=== PATIENT | female | born 1980 | race Caucasian/White ===

== ENCOUNTER 2017-03-21 11:01 | Emergency (ER) | payer MEDICAID ==
[~2017-03-21] VITALS: Ht 157.5 cm; Wt 78.0 kg
[~2017-03-21 11:01] MED LIST: IBUP600 PO; OXYC1SOL5 PO; PREN0.01 PO; ZOLO20CO PO
[2017-03-21 11:08] VITALS: BP 123/82; PULSE 118; RESP 16; TEMP 98.5; O2SAT 98
[2017-03-21] MEDS ORDERED: SODIUM CHLOR 0.9% 1000 ML INJ 1,000 ML IV SCH (11:48)
[2017-03-21] MEDS ORDERED: chlordiazePOXIDE 25 MG CAP PO STA (11:48)
[2017-03-21] MEDS ORDERED: ZOLO100T PO (11:50)
[2017-03-21 11:51] VITALS: RESP 18; O2SAT 95
[2017-03-21 12:00] VITALS: BP 121/79; PULSE 93; RESP 18; O2SAT 97
[2017-03-21] MEDS ORDERED: LIDOCAINE VISCOUS 2% SOLN 15 ML UDC PO ONE (12:00)
[2017-03-21] MEDS ORDERED: FAMOTIDINE 20 MG/2 ML VIAL IV PUSH ONE (12:00)
[2017-03-21] MEDS ORDERED: ONDANSETRON HCL 4 MG/2 ML VIAL IVP ONE (12:00)
[2017-03-21] MEDS ORDERED: SODIUM CHLORIDE 0.9% FLUSH 10 ML FLUSH IV FLUSH PRN (12:00)
[2017-03-21] MEDS ORDERED: ALUMINUM/MAGNESIUM/SIMETH 30 ML CUP PO ONE (12:00)
[2017-03-21 12:19] LABS: AUTOMATED NEUTROPHIL # 2.9 TH/MM3 (1.8-7.7); BASOPHIL # 0.1 TH/MM3 (0-0.2); BASOPHIL % 1.3 % (0.0-2.0); EOSINOPHIL # 0.2 TH/MM3 (0-0.4); EOSINOPHIL % 3.5 % (0.0-4.0); HEMATOCRIT 44.4 % (35.0-46.0); HEMO FLAGS DIFF FINAL; LYMPH % 42.9 % (9.0-44.0); LYMPHOCYTE # 2.6 TH/MM3 (1.0-4.8); MEAN CELL VOLUME 91.2 FL (80.0-100.0); MEAN CORPUSCULAR HEMOGLOBIN 31.2 PG (27.0-34.0); MEAN CORPUSCULAR HGB CONC 34.2 % (32.0-36.0); MONO % 5.2 % (0.0-8.0); NEUT % 47.1 % (16.0-70.0); PLATELET COUNT 235 TH/MM3 (150-450); RED BLOOD COUNT 4.86 MIL/MM3 (4.00-5.30); RED CELL DISTRIBUTION WIDTH 15.6 % (11.6-17.2); WHITE BLOOD COUNT 6.1 TH/MM3 (4.0-11.0)
[2017-03-21 12:21] LABS: BLOOD, URINE LARGE (NEG); GLUCOSE,URINE NEG (NEG); KETONE, URINE NEG (NEG); PH, URINE 5.5 (5.0-8.5)
[2017-03-21 12:30] LABS: NITRITE,URINE POS (NEG)
[2017-03-21 12:35] LABS: METHOD OF COLLECTION VOIDED; URINE COLOR STRAW (YELLW/STRAW)
[2017-03-21 12:36] LABS: POTASSIUM 3.5 MEQ/L (3.5-5.1)
[2017-03-21 12:38] LABS: BACTERIA, URINE MANY /hpf; COMMENT (UR) CULTURE INDICATED; CULTURE IF INDICATED CULTURE INDICATED; SQUAMOUS EPITHELIAL CELL URINE >8 /hpf (0-5); TRANSITIONAL EPI CELLS, URINE 0-2 /hpf
[2017-03-21 12:41] LABS: INTERNATIONAL NORMALIZED RATIO 0.9 RATIO; PROTHROMBIN TIME - PATIENT 9.6 SEC (9.8-11.6)
[2017-03-21 12:45] LABS: INDIRECT BILIRUBIN 0.2 MG/DL (0.0-0.8); TOTAL BILIRUBIN ADULT 0.3 MG/DL (0.2-1.0)
[2017-03-21 12:57] VITALS: BP 104/71; PULSE 98; RESP 16; O2SAT 100
[2017-03-21] MEDS ORDERED: IBUPROFEN 600 MG TAB PO ONE (13:00)
[2017-03-21] MEDS ORDERED: ZANT150T2 PO (13:47)
[2017-03-21] MEDS ORDERED: MACR100C2 PO (13:47)
--- NOTE | 2017-03-21 13:47 | PD ---
HPI Chief Complaint: Abdominal Pain Time Seen by Provider: 11:42 Travel History International Travel<30 days: No Contact w/Intl Traveler<30days: No Traveled to known affect area: No History of Present Illness HPI Patient is a 37 year old female who comes in complaining of upper abdominal pain. She is a chronic alcoholic and she says she wants to go to Detox. She says she called [facility] and was told she needed to go the ED first. She says she has had upper abdominal pain for the past 2 days. She says it feels like she is being squeezed around her upper abdomen. She has had nausea, but no vomiting. Her last drink was earlier today. She does feel very anxious. She denies fever or chills. She says she has not had withdrawal before. PFSH Past Medical History Depression: Yes Diminished Hearing: No Integumentary: Yes (PSORIASIS) Influenza Vaccination: No ?: Not LMP: "1 WEEK AGO" Menopausal: No : 3 Para: 2 Miscarriage: 1 Past Surgical History Other Surgery: Yes (BREAST AUGMENTATION/TUMMY TUCK) Social History Alcohol Use: Yes (18 BEERS AND BOTTLE OF RUM DAILY; 1 MIXED DRINK AND 3 BEERS ) Tobacco Use: No (2 PPD) Substance Use: Yes (MARIJUANA OCCASIONALLY) Allergies-Medications (Allergen,Severity, Reaction): Coded Allergies: No Known Allergies (Verified , 03/21/17) Reported Meds & Prescriptions Reported Meds & Active Scripts Active Reported Zoloft (Sertraline HCl) 100 Mg Tab 100 Mg PO HS Review of Systems Except as stated in HPI: all other systems reviewed are Neg General / Constitutional: No: Fever, Chills Eyes: No: Blurred Vision HENT: No: Headaches Cardiovascular: No: Chest Pain or Discomfort Respiratory: No: Shortness of Breath Gastrointestinal: Positive: Nausea, Abdominal Pain, No: Vomiting Musculoskeletal: No: Pain Skin: No Rash, No Change in Pigmentation Neurologic: No: Weakness, Dizziness Physical Exam Narrative GENERAL: Awake and alert, in no acute distress. SKIN: Focused skin assessment warm/dry. HEAD: Atraumatic. Normocephalic. EYES: Pupils equal and round. No scleral icterus. No injection or drainage. ENT: Mucous membranes pink and moist. No tongue fasciculations. NECK: Trachea midline. No JVD. CARDIOVASCULAR: Regular rate and rhythm. No murmur appreciated. RESPIRATORY: No accessory muscle use. Clear to auscultation. Breath sounds equal bilaterally. GASTROINTESTINAL: Abdomen soft, nondistended. Tender to palpation of the epigastric area. No rebound or guarding. MUSCULOSKELETAL: No obvious deformities. No clubbing. No cyanosis. No edema. NEUROLOGICAL: Awake and alert. No obvious cranial nerve deficits. Motor grossly within normal limits. Normal speech. No tremors seen. PSYCHIATRIC: Appropriate mood and affect; insight and judgment normal. Data Data Last Documented VS Vital Signs Date Time Temp Pulse Resp B/P Pulse Ox O2 Delivery O2 Flow Rate FiO2 03/21/17 12:57 98 16 104/71 100 Room Air 03/21/17 11:08 98.5 Orders Basic Metabolic Panel (Bmp) (03/21/17 11:48) Complete Blood Count With Diff (03/21/17 11:48) Lipase (03/21/17 11:48) Prothrombin Time / Inr (Pt) (03/21/17 11:48) Act Partial Throm Time (Ptt) (03/21/17 11:48) Urinalysis - C+S If Indicated (03/21/17 11:48) Ua Includes Microscopic (03/21/17 11:48) Iv Access Insert/Monitor (03/21/17 11:48) Ecg Monitoring (03/21/17 11:48) Oximetry (03/21/17 11:48) Ondansetron Inj (Zofran Inj) (03/21/17 12:00) Sodium Chlor 0.9% 1000 Ml Inj (Ns 1000 M (03/21/17 11:48) Sodium Chloride 0.9% Flush (Ns Flush) (03/21/17 12:00) Famotidine Inj (Pepcid Inj) (03/21/17 12:00) Al-Mag Hy-Si 40-40-4 Mg/Ml Liq (Mag-Al P (03/21/17 12:00) Lidocaine 2% Viscous (Xylocaine 2% Visco (03/21/17 12:00) Ed Urine Pregnancytest Poc (03/21/17 11:48) Hepatic Functional Panel (03/21/17 11:48) Chlordiazepoxide (Librium) (03/21/17 11:48) Alcohol (Ethanol) (03/21/17 12:00) Urine Culture (03/21/17 12:00) Ibuprofen (Motrin) (03/21/17 13:00) Labs Laboratory Tests Test 03/21/17 12:00 White Blood Count 6.1 TH/MM3 Red Blood Count 4.86 MIL/MM3 Hemoglobin 15.2 GM/DL Hematocrit 44.4 % Mean Corpuscular Volume 91.2 FL Mean Corpuscular Hemoglobin 31.2 PG Mean Corpuscular Hemoglobin 34.2 % Concent Red Cell Distribution Width 15.6 % Platelet Count 235 TH/MM3 Mean Platelet Volume 7.3 FL Neutrophils (%) (Auto) 47.1 % Lymphocytes (%) (Auto) 42.9 % Monocytes (%) (Auto) 5.2 % Eosinophils (%) (Auto) 3.5 % Basophils (%) (Auto) 1.3 % Neutrophils # (Auto) 2.9 TH/MM3 Lymphocytes # (Auto) 2.6 TH/MM3 Monocytes # (Auto) 0.3 TH/MM3 Eosinophils # (Auto) 0.2 TH/MM3 Basophils # (Auto) 0.1 TH/MM3 CBC Comment DIFF FINAL Differential Comment Prothrombin Time 9.6 SEC Prothromb Time International 0.9 RATIO Ratio Activated Partial 28.0 SEC Thromboplast Time Urine Collection Type VOIDED Urine Color STRAW Urine Turbidity CLOUDY Urine pH 5.5 Urine Specific Gray 1.005 Urine Protein NEG mg/dL Urine Glucose (UA) NEG mg/dL Urine Ketones NEG mg/dL Urine Occult Blood LARGE Urine Nitrite POS Urine Bilirubin NEG Urine Leukocyte Esterase LARGE Urine WBC 50-99 /hpf Urine WBC Clumps FEW Urine Squamous Epithelial >8 /hpf Cells Urine Transitional Epithelial 0-2 /hpf Cells Urine Bacteria MANY /hpf Microscopic Urinalysis Comment CULTURE INDICATED Sodium Level 140 MEQ/L Potassium Level 3.5 MEQ/L Chloride Level 102 MEQ/L Carbon Dioxide Level 29.0 MEQ/L Anion Gap 9 MEQ/L Blood Urea Nitrogen 3 MG/DL Creatinine 0.67 MG/DL Estimat Glomerular Filtration 100 ML/MIN Rate Random Glucose 109 MG/DL Calcium Level 9.0 MG/DL Total Bilirubin 0.3 MG/DL Direct Bilirubin 0.1 MG/DL Indirect Bilirubin 0.2 MG/DL Aspartate Amino Transf 245 U/L (AST/SGOT) Alanine Aminotransferase 190 U/L (ALT/SGPT) Alkaline Phosphatase 139 U/L Total Protein 8.0 GM/DL Albumin 4.1 GM/DL Lipase 274 U/L Ethyl Alcohol Level 248 MG/DL [facility] Medical Decision Making Medical Screen Exam Complete: Yes Emergency Medical Condition: Yes Medical Record Reviewed: Yes Differential Diagnosis Alcohol withdrawal versus gastritis versus GERD versus pancreatitis Narrative Course Patient is a 37-year-old female comes in complaining of upper abdominal pain. Exam shows tenderness to the epigastric area. IV established, labs sent. Labs show elevated AST and ALTs, consistent with alcoholic liver disease. Alcohol level is 248. Urine is dirty, suggestive of possible UTI. Patient given GI cocktail and Librium. Currently she has no signs of withdrawal and her alcohol level is quite high. She'll be discharged with a prescription for Macrobid. She is advised to go to the rehabilitation facility and continue with her plan for detox. She is advised of results. Advised to return to the emergency department as needed for any worsening symptoms. Diagnosis Primary Impression: Gastritis Qualified Code: K29.20 - Acute alcoholic gastritis without hemorrhage Additional Impression: UTI (urinary tract infection) Qualified Code: N30.00 - Acute cystitis without hematuria Patient Instructions: Gastritis (ED), General Instructions, Urinary Tract Infection in Women (ED) Additional Instructions: Take all of the antibiotic for your UTI. Avoid alcohol use. Go to [facility] for detox. Return to the ED as needed for any worsening symptoms. You can take Maalox for the abdominal pain, and Zantac. Scripts Nitrofurantoin Monohydrate Macrocrystals (Macrobid)100 Mg Hapawdn104 Mg PO BID 5 Days Ref 0 Prov:Neela Ziegler MD 03/21/17 Ranitidine (Zantac)150 Mg Qtw619 Mg PO BID #60 TAB Ref 0 Prov:Neela Ziegler MD 03/21/17 Disposition: 01 DISCHARGE HOME Condition: Stable Neela Ziegler MD Mar 21, 2017 13:47
[2017-03-21 14:00] VITALS: BP 117/84; PULSE 88; RESP 16; O2SAT 97
== END 2017-03-21 14:22 | disposition home or self-care (01) ==
LOC: PHED 11:01
DX: K29.20 Alcoholic gastritis without bleeding (principal); N30.00 Acute cystitis without hematuria; R82.99 Other abnormal findings in urine; K70.9 Alcoholic liver disease, unspecified; Y90.8 Blood alcohol level of 240 mg/100 ml or more
CPT/HCPCS: 80048; 80076; 80307; 81001; 83690; 84703; 85025; 85610; 85730; 87077; 87086; 87186; 96361; 96374; 96375; 99284; J2405; J7030

== ENCOUNTER 2018-02-09 19:29 | Inpatient (IN) | payer MEDICAID ==
[~2018-02-09] VITALS: Ht 162.6 cm; Wt 72.4 kg
[~2018-02-09 19:29] MED LIST changes: -IBUP600 PO; +MACR100C2 PO; -OXYC1SOL5 PO; -PREN0.01 PO; +ZANT150T2 PO; +ZOLO100T PO; -ZOLO20CO PO
[2018-02-09 19:43] VITALS: BP 115/59; PULSE 121; RESP 20; TEMP 97.8; O2SAT 97
--- NOTE | 2018-02-09 20:07 | PD ---
HPI Chief Complaint: GI Complaint Time Seen by Provider: 19:59 Travel History International Travel<30 days: No Contact w/Intl Traveler<30days: No Traveled to known affect area: No History of Present Illness HPI The patient was seen and examined in the presence of the nurse. This patient complains of nausea and vomiting. Duration 3 days. Severity is moderate to severe. She also has some vague generalized abdominal discomfort. She drinks 6 alcoholic drinks per day. Rare use of cocaine. No history of IV drug abuse. No alleviating factors. Symptoms possibly exacerbated by her substance abuse. PFSH Past Medical History Anxiety: Yes Depression: Yes Diminished Hearing: No Headaches: Yes Psychiatric: Yes (PTSD) Integumentary: Yes (PSORIASIS) Influenza Vaccination: No ?: Unknown LMP: NOW Menopausal: No : 4 Para: 3 Miscarriage: 1 Past Surgical History Other Surgery: Yes (BREAST AUGMENTATION/TUMMY TUCK) Social History Alcohol Use: Yes (STATED 02/09/18 "I DRINK 3 OR 4 MIXED DRINKS PER NIGHT") Tobacco Use: Yes (1 PPD) Substance Use: Yes (STATED 02/09/18 "VERY RARELY COCAINE") Allergies-Medications (Allergen,Severity, Reaction): Coded Allergies: No Known Allergies (Verified Adverse Reaction, Unknown, 02/09/18) Reported Meds & Prescriptions Reported Meds & Active Scripts Active Macrobid (Nitrofurantoin Monohydrate Macrocrystals) 100 Mg Capsule 100 Mg PO BID 5 Days Zantac (Ranitidine HCl) 150 Mg Tab 150 Mg PO BID Reported Zoloft (Sertraline HCl) 100 Mg Tab 100 Mg PO HS Review of Systems General / Constitutional: No: Fever Eyes: No: Visual changes HENT: No: Headaches Cardiovascular: No: Chest Pain or Discomfort Respiratory: No: Shortness of Breath Gastrointestinal: Positive: Nausea, Vomiting, Abdominal Pain Genitourinary: No: Dysuria Musculoskeletal: No: Pain Skin: No Rash Neurologic: No: Weakness Psychiatric: Positive: Substance Abuse, No: Depression Endocrine: No: Polydipsia Hematologic/Lymphatic: No: Easy Bruising Physical Exam Narrative GENERAL: Well-nourished, well-developed patient vomiting and abdominal pain reduced. Has ketone breath SKIN: Focused skin assessment reveals no rash and nodules. Skin is Warm and dry. Covered in tattoos HEAD: Atraumatic. Normocephalic. EYES: Pupils equal and round. No scleral icterus. No injection or drainage. ENT: No nasal bleeding or discharge. Mucous membranes pink and moist. NECK: Trachea midline. No JVD. CARDIOVASCULAR: Regular rate and rhythm. No murmur appreciated. RESPIRATORY: No accessory muscle use. Clear to auscultation. Breath sounds equal bilaterally. GASTROINTESTINAL: Abdomen soft, non-tender, nondistended. Hepatic and splenic margins not palpable. MUSCULOSKELETAL: No obvious deformities. No clubbing. No cyanosis. No edema. NEUROLOGICAL: Awake and alert. No obvious cranial nerve deficits. Motor grossly within normal limits. Normal speech. PSYCHIATRIC: Appropriate mood and affect; insight and judgment poor. Data Data Last Documented VS Vital Signs Date Time Temp Pulse Resp B/P (MAP) Pulse Ox O2 Delivery O2 Flow Rate FiO2 02/09/18:18 113 98 Room Air 02/09/18 19:43 97.8 20 115/59 (77) Orders Orders Complete Blood Count With Diff (02/09/18 20:02) Comprehensive Metabolic Panel (02/09/18 20:02) Beta Hcg (Quant/Titer) (02/09/18 20:02) Lipase (02/09/18 20:02) Iv Access Insert/Monitor (02/09/18 20:02) Ecg Monitoring (02/09/18 20:02) Oximetry (02/09/18 20:02) NPO (02/09/18 20:02) Ondansetron Inj (Zofran Inj) (02/09/18 20:15) Sodium Chloride 0.9% Flush (Ns Flush) (02/09/18 20:15) Sodium Chlor 0.9% 1000 Ml Inj (Ns 1000 M (02/09/18 20:15) Promethazine Inj (Phenergan Inj) (02/09/18 20:15) Blood Gas Venous (Vbg) (02/09/18 20:02) Alcohol (Ethanol) (02/09/18 20:02) Lorazepam Inj (Ativan Inj) (02/09/18 20:15) Sodium Chlor 0.9% 1000 Ml Inj (Ns 1000 M (02/09/18 20:30) Sodium Bicarbonate 8.4% Inj (Sodium Bica (02/09/18 20:30) Sodium Chlor 0.9% 1000 Ml Inj (Ns 1000 M (02/09/18 21:15) Sodium Chlor 0.9% 1000 Ml Inj (Ns 1000 M (02/09/18 21:15) Ob/Psych Drug Screen, Urine (02/09/18 21:04) Magnesium (Mg) (02/09/18 21:04) Phosphorus (Po4) (02/09/18 21:04) Osmolality,Serum (02/09/18 21:04) Potassium Chlor 20 Meq Premix (Kcl 20 Me (02/09/18 21:15) Admit Order (Ed Use Only) (02/09/18 21:06) Ct Abd/Pel W Iv Contrast(Rout) (02/09/18 ) Labs Laboratory Tests Test 02/09/18 20:05 White Blood Count 8.7 TH/MM3 Red Blood Count 4.81 MIL/MM3 Hemoglobin 16.7 GM/DL Hematocrit 49.5 % Mean Corpuscular Volume 102.8 FL Mean Corpuscular Hemoglobin 34.7 PG Mean Corpuscular Hemoglobin Concent 33.7 % Red Cell Distribution Width 12.6 % Platelet Count 131 TH/MM3 Mean Platelet Volume 7.6 FL Neutrophils (%) (Auto) 83.3 % Lymphocytes (%) (Auto) 7.8 % Monocytes (%) (Auto) 8.3 % Eosinophils (%) (Auto) 0.0 % Basophils (%) (Auto) 0.6 % Neutrophils # (Auto) 7.2 TH/MM3 Lymphocytes # (Auto) 0.7 TH/MM3 Monocytes # (Auto) 0.7 TH/MM3 Eosinophils # (Auto) 0.0 TH/MM3 Basophils # (Auto) 0.1 TH/MM3 CBC Comment DIFF FINAL Differential Comment Blood Gas Puncture Site IV Blood Gas Patient Temperature 98.6 Venous Blood pH 7.18 Venous Blood Partial Pressure CO2 16 mmHg Venous Blood Partial Pressure O2 102 mmHg Venous Blood HCO3 6 mmol/L Venous Blood Oxygen Saturation 90 % Venous Blood Oxygen Content 21.3 Vol % Venous Blood Base Excess -21.5 mmol/L Oxygen Delivery Device ROOM AIR Blood Gas Inspired Oxygen 21 % Blood Urea Nitrogen 10 MG/DL Creatinine 0.72 MG/DL Random Glucose 71 MG/DL Total Protein 8.7 GM/DL Albumin 4.7 GM/DL Calcium Level 8.2 MG/DL Alkaline Phosphatase 135 U/L Aspartate Amino Transf (AST/SGOT) 298 U/L Alanine Aminotransferase (ALT/SGPT) 230 U/L Total Bilirubin 1.1 MG/DL Sodium Level 131 MEQ/L Potassium Level 3.7 MEQ/L Chloride Level 97 MEQ/L Carbon Dioxide Level 5.8 MEQ/L Anion Gap 28 MEQ/L Estimat Glomerular Filtration Rate 92 ML/MIN Lipase 3583 U/L Human Chorionic Gonadotropin, Quant LESS THAN 1 MIU/ML Ethyl Alcohol Level 287 MG/DL MDM Medical Decision Making Medical Screen Exam Complete: Yes Emergency Medical Condition: Yes Medical Record Reviewed: Yes Differential Diagnosis Gastroenteritis, alcohol withdrawal, alcoholic ketosis Narrative Course I have reviewed the patient's electronic medical record. IV placed and labs sent I gave her IV Zofran and IV Ativan and 1 L normal saline IV bolus Alcohol is 282 VBG Shows critical findings with a pH of 7.18 and a bicarbonate of 5.7 I gave her a second liter normal saline IV bolus Labs reveal elevated LFTs and elevated lipase consistent with pancreatitis I gave her liters 3 and 4 as a bolus for a total of 4 L at this point I have ordered CT of abdomen and pelvis to rule out pseudocyst or cholecystitis Patient is critically ill. She has alcoholic ketosis. Accu-Chek 72. She is not diabetic in DKA I reviewed with the electric power machine operator who will admit and recommends transfer to the main hospital Multiple rechecks were instituted. A lot of bedside time was logged Critical Care Narrative Aggregate critical care time was 80 minutes. Time to perform other separately billable procedures was not included in the critical care time. My time did not include minutes spent treating any other patients simultaneously or on activities that did not directly contribute to the patient's treatment. The services I provided to this patient were to treat and/or prevent clinically significant deterioration that could result in: Cardiac arrhythmia, cardiopulmonary arrest, hypovolemic shock I provided critical care services requiring my management, as noted below: Chart data review, documentation time, medication orders and management, vital sign assessments/reviewing monitor data, ordering and reviewing lab tests, ordering and interpreting/reviewing x-rays and diagnostic studies, care of the patient and discussion of the patient with the admitting physicians. Diagnosis Primary Impression: Alcoholic ketosis Additional Impressions: Acidemia Dehydration, severe Pancreatitis, alcoholic, acute Qualified Codes: K85.20 - Alcohol induced acute pancreatitis without necrosis or infection Alcohol intoxication Qualified Codes: F10.929 - Alcohol use, unspecified with intoxication, unspecified Admitting Information Admitting Physician Requests: Admit Diogo García MD February 09, 2018 20:07
[2018-02-09] MEDS ORDERED: SODIUM CHLORIDE 0.9% FLUSH 10 ML FLUSH IVF PRN (20:15)
[2018-02-09] MEDS ORDERED: ONDANSETRON HCL 4 MG/2 ML VIAL IV PUSH ONE (20:15)
[2018-02-09] MEDS ORDERED: PROMETHAZINE INJ 25 MG/ML VIAL IM ONE (20:15)
[2018-02-09] MEDS ORDERED: LORazepam 2 MG/ML VIAL IV PUSH ONE (20:15)
[2018-02-09] MEDS ORDERED: SODIUM CHLOR 0.9% 1000 ML INJ 1,000 ML IV ONE ×4 (20:15→21:15)
[2018-02-09 20:18] VITALS: PULSE 113; O2SAT 98
[2018-02-09 20:20] LABS: AUTOMATED NEUTROPHIL # 7.2 TH/MM3 (1.8-7.7); BASOPHIL # 0.1 TH/MM3 (0-0.2); BASOPHIL % 0.6 % (0.0-2.0); HEMATOCRIT 49.5 % (35.0-46.0); HEMOGLOBIN 16.7 GM/DL (11.6-15.3); LYMPH % 7.8 % (9.0-44.0); LYMPHOCYTE # 0.7 TH/MM3 (1.0-4.8); MEAN CELL VOLUME 102.8 FL (80.0-100.0); MEAN CORPUSCULAR HEMOGLOBIN 34.7 PG (27.0-34.0); MEAN CORPUSCULAR HGB CONC 33.7 % (32.0-36.0); MEAN PLATELET VOLUME 7.6 FL (7.0-11.0); MONO % 8.3 % (0.0-8.0); MONOCYTE # 0.7 TH/MM3 (0-0.9); NEUT % 83.3 % (16.0-70.0); PLATELET COUNT 131 TH/MM3 (150-450); RED BLOOD COUNT 4.81 MIL/MM3 (4.00-5.30); RED CELL DISTRIBUTION WIDTH 12.6 % (11.6-17.2); WHITE BLOOD COUNT 8.7 TH/MM3 (4.0-11.0)
[2018-02-09 20:27] LABS: CHLORIDE 97 MEQ/L (98-107); SODIUM (NA) 131 MEQ/L (136-145)
[2018-02-09] MEDS ORDERED: SODIUM BICARBONATE 8.4% INJ 50 MEQ/50 ML SYR IV PUSH ONE (20:30)
[2018-02-09 20:31] LABS: ALBUMIN 4.7 GM/DL (3.4-5.0); BICARBONATE 5.8 MEQ/L (21.0-32.0); CALCIUM 8.2 MG/DL (8.5-10.1); GLUCOSE,RANDOM 71 MG/DL (74-106)
[2018-02-09 20:32] LABS: BLOOD UREA NITROGEN 10 MG/DL (7-18)
[2018-02-09 20:34] LABS: ALT (GPT) 230 U/L (10-53); AST (GOT) 298 U/L (15-37); CREATININE 0.72 MG/DL (0.50-1.00); GLOMERULAR FILTRATION RATE 92 ML/MIN (>89)
[2018-02-09 20:36] LABS: TOTAL BILIRUBIN ADULT 1.1 MG/DL (0.2-1.0); TOTAL PROTEIN 8.7 GM/DL (6.4-8.2)
[2018-02-09 20:37] LABS: ALKALINE PHOSPHATASE 135 U/L (45-117)
[2018-02-09] MEDS ORDERED: LORazepam 2 MG/ML VIAL IV PUSH PRN ×3 (21:15)
[2018-02-09] MEDS ORDERED: POTASSIUM CHLOR 20 MEQ PREMIX 100 ML IV SCH (21:15)
[2018-02-09] MEDS ORDERED: SODIUM CHLORIDE 0.9% FLUSH 10 ML FLUSH IV FLUSH PRN ×2 (21:15)
[2018-02-09] MEDS ORDERED: MAGNESIUM HYDROXIDE SUSP 30 ML CUP PO PRN (21:15)
[2018-02-09] MEDS ORDERED: LACTULOSE SYRUP 20 GM/30 ML CUP PO PRN (21:15)
[2018-02-09] MEDS ORDERED: CHLORHEXIDINE GLUCONATE 2 % 1 PACK (2 CLOTHS) TOP PRN (21:15)
[2018-02-09] MEDS ORDERED: NURSING INFORMATION XX SCH (21:15)
[2018-02-09] MEDS ORDERED: SENNOSIDES 8.6 MG TAB PO PRN (21:15)
[2018-02-09] MEDS ORDERED: FLUMAZENIL 0.5 MG/5 ML VIAL IV PUSH PRN (21:15)
[2018-02-09] MEDS ORDERED: BISACODYL 10 MG SUPP RECTAL PRN (21:15)
[2018-02-09] MEDS ORDERED: RESP: ALBUTEROL 2.5 MG/3 ML NEB (PRN) INH (21:15)
[2018-02-09] MEDS ORDERED: POTASSIUM CHLORIDE 20 MEQ CONTROLLED RELEASE TAB PO ONE (21:30)
[2018-02-09] MEDS ORDERED: IOHEXOL 350 MG/ML 10 ML VIAL (for RAD DIAG) IVCONTRAST ONE (21:43)
[2018-02-09 21:47] LABS: MAGNESIUM 2.3 MG/DL (1.5-2.5)
[2018-02-09 21:49] LABS: PROTHROMBIN TIME - PATIENT 9.7 SEC (9.8-11.6)
[2018-02-09 21:50] LABS: PHOSPHORUS 3.7 MG/DL (2.5-4.9)
--- NOTE | 2018-02-09 21:53 | RADRPT ---
EXAM DATE/TIME: 02/09/2018 21:29 [facility] COMPARISON: No previous studies available for comparison. INDICATIONS : Nausea and vomiting x 3 days. Diffuse abdominal pain. Evaluate for pancreatitis. IV CONTRAST: 85 cc Omnipaque 350 (iohexol) IV ORAL CONTRAST: No oral contrast ingested. RADIATION DOSE: 8.83 CTDIvol (mGy) ; Patient motion MEDICAL HISTORY : Hernia, umbilical. SURGICAL HISTORY : None. ENCOUNTER: Initial ACUITY: 3 days PAIN SCALE: 2/10 LOCATION: Diffuse abdomen. TECHNIQUE: Volumetric scanning of the abdomen and pelvis was performed. Using automated exposure control and ad justment of the mA and/or kV according to patient size, radiation dose was kept as low as reasonably achievable to obtain optimal diagnostic quality images. DICOM format image data is available electro nically for review and comparison. FINDINGS: LOWER LUNGS: The visualized lower lungs are clear. LIVER: Liver is enlarged and demonstrates diffuse fatty infiltration. No focal mass is noted. There is no di lation of the biliary tree. No calcified gallstones. SPLEEN: Normal size without lesion. PANCREAS: There is some fluid surrounding the head of the pancreas. The head of the pancreas is also somewhat e nlarged. The findings raise the possibility of acute pancreatitis in the region of the head. Correlat ion with amylase and lipase values is recommended. No pancreatic ductal dilatation is noted. No focal mass is noted. KIDNEYS: Normal in size and shape. There is no mass, stone or hydronephrosis. ADRENAL GLANDS: Within normal limits. VASCULAR: There is no aortic aneurysm. BOWEL/MESENTERY: The stomach, small bowel, and colon demonstrate no acute abnormality. There is no free intraperitone al air or fluid. ABDOMINAL WALL: There is a ventral abdominal wall hernia containing only fat to the right of midline RETROPERITONEUM: There is no lymphadenopathy. BLADDER: Urinary bladder is significantly distended. No wall thickening or mass. REPRODUCTIVE: Within normal limits. INGUINAL: There is no lymphadenopathy or hernia. MUSCULOSKELETAL: Within normal limits for patient age. CONCLUSION: 1. Enlargement of the pancreatic head with peripancreatic fluid suggesting acute pancreatitis. Correl ation with amylase and lipase size is recommended. 2. Enlarged fatty liver. 3. Ventral abdominal wall hernia to the right of midline containing only fat. Nicola Morris MD on February 09, 2018 at 21:45 Board Certified Radiologist. This report was verified electronically.
[2018-02-09 21:58] LABS: BILIRUBIN, URINE NEG (NEG); BLOOD, URINE LARGE (NEG); GLUCOSE,URINE NEG (NEG); KETONE, URINE 80 OR GREATER mg/dL (NEG); NITRITE,URINE NEG (NEG); PH, URINE 5.5 (5.0-8.5); URINE COLOR YELLOW (YELLW/STRAW); URINE LEUKOCYTE ESTERASE NEG (NEG)
[2018-02-09 22:03] LABS: RBC, URINE 100-200 /hpf (0-3)
[2018-02-09 22:04] LABS: BACTERIA, URINE MOD /hpf; SQUAMOUS EPITHELIAL CELL URINE > 8 /hpf (0-5)
[2018-02-09 22:05] VITALS: BP 112/66; PULSE 110; RESP 18; O2SAT 99
[2018-02-09 22:50] VITALS: BP 124/62; PULSE 116; RESP 18; O2SAT 98
[2018-02-09] MEDS: ONDANSETRON HCL 4 MG/2 ML VIAL IV PUSH PRN (22:54)
[2018-02-09] MEDS: LORazepam 2 MG/ML VIAL IV PUSH PRN (22:56)
[2018-02-09] MEDS: THIAMINE INJ 100 MG in SODIUM CHLORIDE 0.9% INJ 100 ML IV SCH (22:59)
[2018-02-09 23:10] VITALS: BP 111/60; PULSE 112; RESP 16; O2SAT 98
[2018-02-10] VITALS (16 sets, daily range): BP systolic 102–144; BP diastolic 69–85; PULSE 92–124; RESP 22–44; TEMP 98.4–98.9; O2SAT 84–98
[2018-02-10] MEDS: LORazepam 2 MG/ML VIAL IV PUSH PRN ×3 (01:19→20:17)
[2018-02-10] MEDS: MULTIVITAMIN INJ 10 ML, FOLIC ACID INJ 1 MG in SODIUM CHLORID 0.9% 500 ML INJ 500 ML IV SCH ×2 (01:20→20:35)
[2018-02-10] MEDS: POTASSIUM CHLORIDE INJ 30 MEQ in DEXT 5%-NACL 0.9% 1000 ML INJ 1,000 ML IV SCH ×2 (01:21→05:23)
[2018-02-10 01:38] LABS: AUTOMATED NEUTROPHIL # 5.1 TH/MM3 (1.8-7.7); BASOPHIL # 0.1 TH/MM3 (0-0.2); BASOPHIL % 0.8 % (0.0-2.0); HEMATOCRIT 39.5 % (35.0-46.0); HEMOGLOBIN 13.6 GM/DL (11.6-15.3); LYMPH % 10.8 % (9.0-44.0); LYMPHOCYTE # 0.7 TH/MM3 (1.0-4.8); MEAN CELL VOLUME 104.3 FL (80.0-100.0); MEAN CORPUSCULAR HGB CONC 34.5 % (32.0-36.0); MEAN PLATELET VOLUME 7.6 FL (7.0-11.0); MONO % 9.7 % (0.0-8.0); MONOCYTE # 0.6 TH/MM3 (0-0.9); NEUT % 78.7 % (16.0-70.0); PLATELET COUNT 78 TH/MM3 (150-450); RED BLOOD COUNT 3.79 MIL/MM3 (4.00-5.30); RED CELL DISTRIBUTION WIDTH 13.3 % (11.6-17.2); WHITE BLOOD COUNT 6.5 TH/MM3 (4.0-11.0)
--- NOTE | 2018-02-10 01:51 | RADRPT ---
EXAM DATE/TIME: 02/10/2018 01:03 [facility] COMPARISON: No previous studies available for comparison. INDICATIONS : Shortness of breath, possible pulmonary disease. MEDICAL HISTORY : Hernia SURGICAL HISTORY : None. ENCOUNTER: Initial ACUITY: 1 day PAIN SCORE: 0/10 LOCATION: Bilateral chest FINDINGS: A single view of the chest demonstrates the lungs to be symmetrically aerated without evidence of mas s, infiltrate or effusion. The cardiomediastinal contours are unremarkable. Osseous structures are intact. CONCLUSION: Normal examination. Soham Terrell MD on February 10, 2018 at 1:50 Board Certified Radiologist. This report was verified electronically.
[2018-02-10 02:10] LABS: ALBUMIN 3.6 GM/DL (3.4-5.0); BICARBONATE 10.9 MEQ/L (21.0-32.0); CALCIUM 6.2 MG/DL (8.5-10.1); CREATININE 0.51 MG/DL (0.50-1.00); MAGNESIUM 1.7 MG/DL (1.5-2.5); PHOSPHORUS 1.7 MG/DL (2.5-4.9); TOTAL PROTEIN 6.1 GM/DL (6.4-8.2)
[2018-02-10 02:13] LABS: CALCIUM-PROTEIN CORRECTED 6.7 MG/DL (8.5-10.1)
--- NOTE | 2018-02-10 02:17 | HHI.HP ---
[facility] Service Critical Care Medicine Primary Care Physician No Primary Care Physician Admission Diagnosis alcoholic ketosis,acidemia,dehydration,pancreatitis Diagnosis: (1) Pancreatitis, alcoholic, acute Diagnosis: Principal (2) Alcoholic ketosis Diagnosis: Principal (3) Dehydration, severe Diagnosis: Secondary (4) Cocaine abuse Diagnosis: Secondary (5) Tobacco abuse Diagnosis: Secondary (6) EtOH dependence Diagnosis: Secondary Travel History International Travel<30 Days: No Contact w/Intl Traveler <30 Da: No Traveled to Known Affected Are: No Sepsis Criteria SIRS Criteria (2 or more): Heart rate over 90, RR > 20 or PaCO2 < 32 History of Present Illness 38-year-old female with past medical history of chronic alcohol dependence who presented to [facility] with a 3 day history of nausea vomiting and abdominal pain. She denies hematemesis or melena. Workup revealed acute pancreatitis. She had sinus tachycardia in the 110s but was normotensive. Her lipase was 3500, transaminases were elevated in the [address] abdomen and pelvis is consistent with acute pancreatitis. There is no evidence of biliary obstruction. She also has acute alcoholic ketoacidosis with bicarbonate 5.8, anion gap 28, glucose 71, beta hydroxy hydroxybutyrate of 11.6. PH is 7.18/PaCO2 of 16. She is hemoconcentrated with hemoglobin of 16.7. Creatinine is normal. She admits to using cocaine and alcohol. She denies toxic alcohol ingestion. Her EtOH level was 287. She is transferred to [facility] for director airport admission. At [place] she received 4 L of normal saline bolus, bicarb 100 mEq, Phenergan 25 mg IM, Ativan 1 mg IV. She denies prior history of pancreatitis though she is not completely reliable historian at this point as she appears to be experiencing early alcohol withdrawal symptom versus stimulant toxicity. Mental status was reportedly normal at [place]. Review of Systems ROS Limitations: Clinical Condition, Poor Historian Constitutional: DENIES: Fever Cardiovascular: DENIES: Chest pain Past Family Social History Allergies: Coded Allergies: No Known Allergies (Verified Allergy, Unknown, 02/09/18) Past Medical History PTSD Depression Anxiety Psoriasis Past Surgical History Breast augmentation Abdominoplasty Reported Medications She states she does not take any medications. Her last med rec includes Zoloft 100 mg p.o. nightly and Zantac 150 twice daily and Macrobid. Family History She states both of her parents have alcohol and drug dependence. She is not aware of any other medical issues but she states they do not seek medical care. Social History Smokes 1 pack of cigarettes per day. She states she drinks at least 6 alcoholic beverages per day usually consisting of 3 cocktails and 3 beers She states she snorted cocaine at a [employer] 2 days ago but states "that is not a regular thing" Denies IV drug use Physical Exam Vital Signs Vital Signs Date Time Temp Pulse Resp B/P (MAP) Pulse Ox O2 Delivery O2 Flow Rate FiO2 02/10/18 00:00 02/09/18 23:10 112 16 111/60 (77) 98 Room Air 02/09/18 22:50 116 18 124/62 (82) 98 Room Air 02/09/18 22:05 110 18 112/66 (81) 99 Room Air 02/09/18 20:18 113 98 Room Air 02/09/18 19:43 97.8 121 20 115/59 (77) 97 Physical Exam GENERAL: Well-nourished, well-developed patient who is sitting up in ISC bed. She was awake and conversant. SKIN: Warm and dry. HEAD: Atraumatic. Normocephalic. EYES: Pupils equal and round, 4 mm and reactive to 3 mm bilaterally.. No scleral icterus. No injection or drainage. ENT: No nasal bleeding or discharge. Mucous membranes pink and moist. NECK: Trachea midline. No JVD. CARDIOVASCULAR: Tachycardic, regular with sinus tach on the monitor with a rate of about 105.. No murmurs rubs or gallops. RESPIRATORY: Breathing comfortably on room air with no accessory muscle use. Sats are 97%. No wheezes rales or rhonchi. GASTROINTESTINAL: Abdomen soft, non-tender, nondistended. Specifically she denies epigastric tenderness. Bowel sounds are present. She has large tattoo over her abdomen. MUSCULOSKELETAL: Extremities without clubbing, cyanosis. There is trace bipedal edema. NEUROLOGICAL: Awake and alert. She answered all questions of orientation correctly but then was intermittently confused, disoriented, appeared to be hallucinating. No obvious cranial nerve deficits. She is moving all extremities spontaneously and vigorously without apparent focal deficit. Laboratory Laboratory Tests Test 02/09/18 20:05 02/09/18 21:20 02/09/18 21:45 02/10/18 00:56 White Blood Count 8.7 Red Blood Count 4.81 Hemoglobin 16.7 Hematocrit 49.5 Mean Corpuscular Volume 102.8 Mean Corpuscular Hemoglobin 34.7 Mean Corpuscular Hemoglobin Concent 33.7 Red Cell Distribution Width 12.6 Platelet Count 131 Mean Platelet Volume 7.6 Neutrophils (%) (Auto) 83.3 Lymphocytes (%) (Auto) 7.8 Monocytes (%) (Auto) 8.3 Eosinophils (%) (Auto) 0.0 Basophils (%) (Auto) 0.6 Neutrophils # (Auto) 7.2 Lymphocytes # (Auto) 0.7 Monocytes # (Auto) 0.7 Eosinophils # (Auto) 0.0 Basophils # (Auto) 0.1 CBC Comment DIFF FINAL Differential Comment Blood Gas Puncture Site IV Blood Gas Patient Temperature 98.6 Venous Blood pH 7.18 Venous Blood Partial Pressure CO2 16 Venous Blood Partial Pressure O2 102 Venous Blood HCO3 6 Venous Blood Oxygen Saturation 90 Venous Blood Oxygen Content 21.3 Venous Blood Base Excess -21.5 Oxygen Delivery Device ROOM AIR Blood Gas Inspired Oxygen 21 Blood Urea Nitrogen 10 Creatinine 0.72 Random Glucose 71 Total Protein 8.7 Albumin 4.7 Calcium Level 8.2 Alkaline Phosphatase 135 Aspartate Amino Transf (AST/SGOT) 298 Alanine Aminotransferase (ALT/SGPT) 230 Total Bilirubin 1.1 Sodium Level 131 Potassium Level 3.7 Chloride Level 97 Carbon Dioxide Level 5.8 Anion Gap 28 Estimat Glomerular Filtration Rate 92 Lipase 3583 Human Chorionic Gonadotropin, Quant LESS THAN 1 Acetaminophen Level LESS THAN 2.0 Ethyl Alcohol Level 287 Prothrombin Time 9.7 Prothromb Time International Ratio 1.0 Activated Partial Thromboplast Time 28.4 Serum Osmolality 367 Lactic Acid Level 2.5 Phosphorus Level 3.7 Magnesium Level 2.3 Total Creatine Kinase 88 Salicylates Level 4.5 B-Hydroxybutyrate 11.62 Urine Color YELLOW Urine Turbidity SL CLOUDY Urine pH 5.5 Urine Specific Gallant GREATER/EQUAL 1.030 Urine Protein 100 Urine Glucose (UA) NEG Urine Ketones 80 OR GREATER Urine Occult Blood LARGE Urine Nitrite NEG Urine Bilirubin NEG Urine Urobilinogen 0.2 Urine Leukocyte Esterase NEG Urine RBC 100-200 Urine WBC 3-5 Urine Squamous Epithelial Cells > 8 Urine Bacteria MOD Microscopic Urinalysis Comment CULTURE INDICATED Urine Opiates Screen NEG Urine Barbiturates Screen NEG Urine Amphetamines Screen NEG Urine Benzodiazepines Screen NEG Urine Cocaine Screen POS Urine Cannabinoids Screen NEG Test 02/10/18 01:27 White Blood Count 6.5 Red Blood Count 3.79 Hemoglobin 13.6 Hematocrit 39.5 Mean Corpuscular Volume 104.3 Mean Corpuscular Hemoglobin 36.0 Mean Corpuscular Hemoglobin Concent 34.5 Red Cell Distribution Width 13.3 Platelet Count 78 Mean Platelet Volume 7.6 Neutrophils (%) (Auto) 78.7 Lymphocytes (%) (Auto) 10.8 Monocytes (%) (Auto) 9.7 Eosinophils (%) (Auto) 0.0 Basophils (%) (Auto) 0.8 Neutrophils # (Auto) 5.1 Lymphocytes # (Auto) 0.7 Monocytes # (Auto) 0.6 Eosinophils # (Auto) 0.0 Basophils # (Auto) 0.1 CBC Comment AUTO DIFF Blood Urea Nitrogen 6 Creatinine 0.51 Random Glucose 81 Total Protein 6.1 Albumin 3.6 Calcium Level 6.2 Phosphorus Level 1.7 Magnesium Level 1.7 Alkaline Phosphatase 98 Aspartate Amino Transf (AST/SGOT) 200 Alanine Aminotransferase (ALT/SGPT) 152 Total Bilirubin 1.0 Sodium Level 141 Potassium Level 3.8 Chloride Level 109 Carbon Dioxide Level 10.9 Anion Gap 21 Estimat Glomerular Filtration Rate 136 Protein Corrected Calcium 6.7 Triglycerides Level 229 Lipase 3983 Date/Time Source Procedure Growth Status 02/09/18 21:25 Blood Peripheral Aerobic Blood Culture Pending Received 02/09/18 21:25 Blood Peripheral Anaerobic Blood Culture Pending Received 02/09/18 21:45 Urine Clean Catch Urine Culture Pending Received Result Diagram: 02/10/18 0127 02/10/18 0127 Septic Shock Reassessment Septic shock perfusion: reassessment completed Caprini VTE Risk Assessment Caprini VTE Risk Assessment: Mod/High Risk (score >= 2) Caprini Risk Assessment Model Point Value = 1 Point Value = 2 Point Value = 3 Point Value = 5 Age 41-60 Minor surgery BMI > 25 kg/m2 Swollen legs Varicose veins or History of unexplained or recurrent spontaneous Oral contraceptives or hormone replacement Sepsis (< 1 month) Serious lung disease, including pneumonia (< 1 month) Abnormal pulmonary function Acute myocardial infarction Congestive heart failure (< 1 month) History of inflammatory bowel disease Medical patient at bed rest Age 61-74 Arthroscopic surgery Major open surgery (> 45 min) Laparoscopic surgery (> 45 min) Malignancy Confined to bed (> 72 hours) Immobilizing plaster cast Central venous access Age >= 75 History of VTE Family history of VTE Factor V Leiden Prothrombin [id number] Lupus anticoagulant Anticardiolipin antibodies Elevated serum homocysteine Heparin-induced thrombocytopenia Other congenital or acquired thrombophilia Stroke (< 1 month) Elective arthroplasty Hip, pelvis, or leg fracture Acute spinal cord injury (< 1 month) Prophylaxis Regimen Total Risk Factor Score Risk Level Prophylaxis Regimen 0-1 Low Early ambulation 2 Moderate Order ONE of the following: *Sequential Compression Device (SCD) *Heparin 5000 units SQ BID 3-4 Higher Order ONE of the following medications: *Heparin 5000 units SQ TID *Enoxaparin/Lovenox 40 mg SQ daily (WT < 150 kg, CrCl > 30 mL/min) *Enoxaparin/Lovenox 30 mg SQ daily (WT < 150 kg, CrCl > 10-29 mL/min) *Enoxaparin/Lovenox 30 mg SQ BID (WT < 150 kg, CrCl > 30 mL/min) AND/OR *Sequential Compression Device (SCD) 5 or more Highest Order ONE of the following medications: *Heparin 5000 units SQ TID (Preferred with Epidurals) *Enoxaparin/Lovenox 40 mg SQ daily (WT < 150 kg, CrCl > 30 mL/min) *Enoxaparin/Lovenox 30 mg SQ daily (WT < 150 kg, CrCl > 10-29 mL/min) *Enoxaparin/Lovenox 30 mg SQ BID (WT < 150 kg, CrCl > 30 mL/min) AND *Sequential Compression Device (SCD) Assessment and Plan Problem List: (1) Hypocalcemia ICD Code: E83.51 - Hypocalcemia Status: Acute (2) Alcohol intoxication ICD Code: F10.929 - Alcohol use, unspecified with intoxication, unspecified Status: Acute (3) Dehydration, severe ICD Code: E86.0 - Dehydration Status: Acute (4) Pancreatitis, alcoholic, acute ICD Code: K85.20 - Alcohol induced acute pancreatitis without necrosis or infection Status: Acute (5) Alcoholic ketosis ICD Code: E87.2 - Acidosis Status: Acute (6) Cocaine abuse ICD Code: F14.10 - Cocaine abuse, uncomplicated Status: Acute (7) Tobacco abuse ICD Code: Z72.0 - Tobacco use Status: Chronic (8) EtOH dependence ICD Code: F10.20 - Alcohol dependence, uncomplicated Status: Chronic (9) Transaminitis ICD Code: R74.0 - Nonspecific elevation of levels of transaminase and lactic acid dehydrogenase [LDH] (10) Thrombocytopenia ICD Code: D69.6 - Thrombocytopenia, unspecified (11) Macrocytosis without anemia ICD Code: D75.89 - Other specified diseases of blood and blood-forming organs Status: Chronic Assessment and Plan NEURO/TOX: Acute encephalopathy Alcohol dependence Cocaine abuse PTSD/anxiety/depression Obtain CT brain to r/o focal hemorrhage or other abnormality considering recent cocaine use. Ammonia level ordered. CIWA protocol with Ativan prn. IV MVI/thiamine/folate. He can be transitioned to p.o. when appropriate Precedex as needed for EtOH withdrawal. Osmole gap is 19 but this could be multifactorial due to ketoacidosis (acetone) . She denies toxic alcohol ingestion and she was pretty forthcoming with drug history. Alcohol cessation counseling discussed Patient states she was no longer taking an SSRI RESP: Tobacco abuse Tobacco cessation counseling discussed IS q1 hour awake Albuterol every 2 hours as needed for wheezing CV: Hypertriglyceridemia - not causative for pancreatitis and can be addressed when acute issues with pancreatitis/elevated LFTs resolve. EKG shows sinus tachycardia with PACs. There is some nonspecific ST changes in V4-V6 Patient denies chest pain Follow-up EKG and troponin GI: Acute pancreatitis -CT abdomen pelvis consistent with acute pancreatitis. No evidence of biliary obstruction. Check triglycerides which are only mildly elevated and not causative. She denies use of any medications. This is likely alcohol induced Transaminitis. - Likely alcohol induced. Discriminant function is not high. F/ u Viral hepatitis panel N.p.o. for now. Trend lipase per FEN/RENAL: Acute alcoholic ketoacidosis Ketonuria Hypocalcemia Patient was given 4 L of 0.9 NaCl in the emergency department and bicarb 100 mEq IV. D5 0.9 NaCl with 30 mEq of KCl per liter at 1 25 mL/h Ordered 40 mEq of potassium (20 po/20 IV) anticipating downtrend as acidemia corrects Follow magnesium and phosphorus which will likely drop as well. Replace as indicated. Gave calcium gluconate 2 g IV. CPK is normal Creatinine is normal, follow ID: SIRS secondary to acute pancreatis Obtain blood culture. Follow-up. Urinalysis with moderate bacteria. Specimen contaminated with squamous cells and patient is currently menstruating. She has no urinary symptoms so this may be a contaminant. We will follow-up urine culture Monitor off antibiotics at this time HEME: Thrombocytopenia Erythrocyte macrocytosis Was volume depleted and hemoconcentrated on admission. Has erythrocyte macrocytosis which is likely secondary to alcohol abuse. Thrombocytopenia may be secondary to alcohol use as well, versus consumptive secondary to SIRS. PTT is not prolonged as would be expected with DIC. Will check fibrinogen. Trend platelets via CBC. Check peripheral smear. Check lower extremity u/s to evaluate for DVT as source of plt consumption as she is at higher risk due to frequent drug use and incapacitation. ENDO: No acute issues apparent at this time. PROPH: SCD for DVT prophylaxis. Would add heparin for DVT prophylaxis if CT brain is negative; monitor platelet count and d/c if <50k. ACCESS: Peripheral IV providing adequate access at this time Full code Level 3 H&P Problem Qualifiers (1) Pancreatitis, alcoholic, acute: Qualified Codes: K85.20 - Alcohol induced acute pancreatitis without necrosis or infection (2) Alcohol intoxication: Qualified Codes: F10.929 - Alcohol use, unspecified with intoxication, unspecified Shantel Luis MD February 10, 2018 02:17
[2018-02-10] MEDS ORDERED: POTASSIUM CHLOR 40 MEQ PREMIX 100 ML IV PRN ×2 (02:30)
[2018-02-10] MEDS ORDERED: MAGNESIUM SULFATE 1 GM PREMIX 100 ML IV ONE (02:30)
[2018-02-10] MEDS ORDERED: LORazepam 2 MG/ML VIAL IV PUSH ONE ×2 (02:30→04:00)
[2018-02-10] MEDS ORDERED: POTASSIUM CHLORIDE 25 MEQ EFFERVESCENT TAB PO PRN (02:30)
[2018-02-10] MEDS ORDERED: POTASSIUM PHOSPHATE INJ 30 MMOL in SODIUM CHLOR 0.9% 250 ML INJ 250 ML IV ONE (02:30)
[2018-02-10] MEDS ORDERED: POTASSIUM PHOSPHATE MONOBASIC 500 MG TAB PO/TUBE PRN (02:30)
[2018-02-10] MEDS ORDERED: CALCIUM GLUCONATE INJ 2 GM in SODIUM CHLORIDE 0.9% INJ 100 ML IV ONE (02:30)
[2018-02-10] MEDS ORDERED: MAGNESIUM OXIDE 400 MG TAB PO PRN (02:30)
[2018-02-10] MEDS ORDERED: MAGNESIUM SULFATE INJ 2 GM in SODIUM CHLORIDE 0.9% INJ 96 ML IV PRN (02:30)
[2018-02-10] MEDS ORDERED: POTASSIUM PHOSPHATE MONOBASIC 500 MG TAB PO PRN (02:30)
[2018-02-10] MEDS ORDERED: SODIUM PHOSPHATE INJ 30 MMOL in SODIUM CHLOR 0.9% 250 ML INJ 240 ML IV PRN (02:30)
[2018-02-10] MEDS ORDERED: MAGNESIUM SULFATE INJ 4 GM in SODIUM CHLORIDE 0.9% INJ 92 ML IV PRN (02:30)
[2018-02-10] MEDS ORDERED: POTASSIUM CHLOR 20 MEQ PREMIX 100 ML IV PRN ×2 (02:30)
[2018-02-10] MEDS ORDERED: DEXMEDETOMIDINE INJ 200 MCG in SODIUM CHLORIDE 0.9% INJ 50 ML IV PRN (02:30)
[2018-02-10] MEDS: POTASSIUM PHOSPHATE INJ 30 MMOL in SODIUM CHLOR 0.9% 250 ML INJ 250 ML IV PRN ×2 (03:20→21:22)
[2018-02-10] MEDS: CHLORHEXIDINE GLUCONATE 2 % 1 PACK (2 CLOTHS) TOP SCH (04:00)
[2018-02-10] MEDS ORDERED: SODIUM CHLORIDE 0.9% FLUSH 10 ML FLUSH IV FLUSH SCH (09:00)
--- NOTE | 2018-02-10 09:12 | RADRPT ---
EXAM DATE/TIME: 02/10/2018 08:12 [place] COMPARISON: No previous studies available for comparison. INDICATIONS : Thrombosis. MEDICAL HISTORY : Hernia, umbilical. SURGICAL HISTORY : Breast augmentation. ENCOUNTER: Initial ACUITY: 1 day PAIN SCORE: 2/10 LOCATION: Bilateral leg. TECHNIQUE: Venous ultrasound of the left and right leg was performed from the inguinal ligament to the proximal calf. Real-time, color Doppler and spectral tracing, compression and augmentation techniques were us ed. FINDINGS: RIGHT LEG: There is normal compressibility of the deep venous system from the inguinal region to the proximal ca lf. No echogenic clot is seen in the lumen of the common femoral, femoral, popliteal, and posterior tibial veins. There is a normal response of the venous system to proximal and distal augmentation an d respiration. LEFT LEG: There is normal compressibility of the deep venous system from the inguinal region to the proximal ca lf. No echogenic clot is seen in the lumen of the common femoral, femoral, popliteal, and posterior tibial veins. There is a normal response of the venous system to proximal and distal augmentation an d respiration. CONCLUSION: No DVT. Hector Maloney MD on February 10, 2018 at 9:09 Board Certified Radiologist. This report was verified electronically.
[2018-02-10 09:19] LABS: AUTOMATED NEUTROPHIL # 4.9 TH/MM3 (1.8-7.7); BASOPHIL % 0.4 % (0.0-2.0); EOSINOPHIL % 0.2 % (0.0-4.0); HEMATOCRIT 38.9 % (35.0-46.0); HEMOGLOBIN 13.4 GM/DL (11.6-15.3); LYMPHOCYTE # 0.6 TH/MM3 (1.0-4.8); MEAN CELL VOLUME 103.6 FL (80.0-100.0); MEAN CORPUSCULAR HEMOGLOBIN 35.6 PG (27.0-34.0); MEAN CORPUSCULAR HGB CONC 34.3 % (32.0-36.0); MEAN PLATELET VOLUME 8.5 FL (7.0-11.0); MONO % 10.6 % (0.0-8.0); MONOCYTE # 0.7 TH/MM3 (0-0.9); NEUT % 79.8 % (16.0-70.0); PLATELET COUNT 82 TH/MM3 (150-450); RED BLOOD COUNT 3.75 MIL/MM3 (4.00-5.30); RED CELL DISTRIBUTION WIDTH 13.1 % (11.6-17.2); WHITE BLOOD COUNT 6.2 TH/MM3 (4.0-11.0)
[2018-02-10 09:37] LABS: ALBUMIN 3.5 GM/DL (3.4-5.0); BICARBONATE 10.3 MEQ/L (21.0-32.0); CREATININE 0.51 MG/DL (0.50-1.00); PHOSPHORUS 2.1 MG/DL (2.5-4.9); TOTAL BILIRUBIN ADULT 1.4 MG/DL (0.2-1.0); TOTAL PROTEIN 6.3 GM/DL (6.4-8.2)
[2018-02-10 09:41] LABS: CALCIUM 6.8 MG/DL (8.5-10.1); CALCIUM-PROTEIN CORRECTED 7.2 MG/DL (8.5-10.1)
--- NOTE | 2018-02-10 10:43 | EKG ---
Date Performed: 02/10/2018 Time Performed: 04:57:25 PTAGE: 38 years EKG: SINUS TACHYCARDIA WITH OCCASIONAL ECTOPIC PREMATURE COMPLEXES NONSPECIFIC ST & T-WAVE ABNOR MALITY ABNORMAL RHYTHM ECG Since the PREVIOUS TRACING , no significant change noted PREVIOUS TRACIN02/09/2018 22.11 DOCTOR: Jose Luis Kaminski Interpretating Date/Time 02/10/2018 10:41:06
--- NOTE | 2018-02-10 11:38 | EKG ---
Date Performed: 02/09/2018 Time Performed: 22:11:15 PTAGE: 38 years EKG: SINUS TACHYCARDIA WITH OCCASIONAL ECTOPIC PREMATURE COMPLEXES NONSPECIFIC ST & T-WAVE ABNOR MALITY ABNORMAL RHYTHM ECG Compared to PREVIOUS TRACING , nonspecific ST-T wave changes are now present. PREVIOUS TRACIN01/27 05.33 DOCTOR: Jose Luis Kaminski Interpretating Date/Time 02/10/2018 11:37:50
[2018-02-10] MEDS ORDERED: CALCIUM GLUCONATE INJ 1 GM in SODIUM CHLORIDE 0.9% INJ 100 ML IV ONE (12:00)
--- NOTE | 2018-02-10 13:49 | PD.CONS ---
HPI History of Present Illness This is a 38 year old female with hx etoh abuse who presented with abd pain, n/v , onset 3 days ago. SHe is also c/o palpitations for the last 3-4 days. Denies prior hx pancreatitis or liver problems. Admits to drinking etoh and using cocaine 3 days ago. She was found to have lipase 3500 and serum ETOH 287. CT suggestive acute pancreatitis. (Kriss Hansen) PFSH Past Medical History PTSD depression anxiety Past Surgical History breast augmentation abdominoplasty (Kriss Hansen) Coded Allergies: No Known Allergies (Verified Allergy, Unknown, 02/09/18) Family History substance abuse Social History 6 drinks daily smokes 1ppd UDS pos for cocaine, used 3d ago (Kriss Hansen) Review of Systems Constitutional: DENIES: Fever Endocrine: DENIES: Polydipsia Eyes: DENIES: Blurred vision Ears, nose, mouth, throat: DENIES: Hearing loss Respiratory: DENIES: Cough Cardiovascular: COMPLAINS OF: Palpitations Gastrointestinal: COMPLAINS OF: Abdominal pain, Nausea, Vomiting, DENIES: Black stools, Bloody stools Genitourinary: DENIES: Hematuria Musculoskeletal: DENIES: Muscle aches Integumentary: DENIES: Jaundice Hematologic/lymphatic: DENIES: Bruising Neurologic: DENIES: Abnormal gait Psychiatric: DENIES: Confusion (Kriss Hansen) GI Exam Vitals I&O Vital Signs Date Time Temp Pulse Resp B/P (MAP) Pulse Ox O2 Delivery O2 Flow Rate FiO2 02/10/18 12:00 98.7 124 44 130/82 (98) 84 02/10/18 12:00 124 02/10/18 11:00 114 02/10/18 10:00 111 02/10/18 09:00 105 02/10/18 08:00 98.7 100 25 102/69 (80) 96 02/10/18 08:00 100 02/10/18 07:00 92 02/10/18 04:00 98.4 114 22 144/84 (104) 02/10/18 00:30 98.9 106 33 130/76 (94) 97 02/10/18 00:00 02/09/18 23:10 112 16 111/60 (77) 98 Room Air 02/09/18 22:50 116 18 124/62 (82) 98 Room Air 02/09/18 22:05 110 18 112/66 (81) 99 Room Air 02/09/18 20:18 113 98 Room Air 02/09/18 19:43 97.8 121 20 115/59 (77) 97 I/O 02/09/18 02/09/18 02/09/18 02/10/18 02/10/18 02/10/18 07:00 15:00 23:00 07:00 15:00 23:00 Intake Total 4000 ml 896 ml Output Total 850 ml Balance 3150 ml 896 ml Intake Oral 0 ml IV Total 4000 ml 896 ml Output Urine Total 800 ml Emesis 50 ml # Voids 1 3 # Bowel Movements 0 Imaging Last Impressions Lower Extremity Ultrasound 02/10/18 0000 Signed Impressions: Service Date/Time: Saturday, February 10, 2018 08:12 - CONCLUSION: No DVT. Hector Maloney MD Chest X-Ray 02/09/18 0000 Signed Impressions: Service Date/Time: Saturday, February 10, 2018 01:03 - CONCLUSION: Normal examination. Soham Terrell MD Abdomen/Pelvis CT 02/09/18 0000 Signed Impressions: Service Date/Time: Friday, February 09, 2018 21:29 - CONCLUSION: 1. Enlargement of the pancreatic head with peripancreatic fluid suggesting acute pancreatitis. Correlation with amylase and lipase size is recommended. 2. Enlarged fatty liver. 3. Ventral abdominal wall hernia to the right of midline containing only fat. Nicola Morris MD Laboratory Test 02/09/18 20:05 02/09/18 21:20 02/09/18 21:45 02/10/18 00:56 White Blood Count 8.7 TH/MM3 Red Blood Count 4.81 MIL/MM3 Hemoglobin 16.7 GM/DL Hematocrit 49.5 % Mean Corpuscular Volume 102.8 FL Mean Corpuscular Hemoglobin 34.7 PG Mean Corpuscular Hemoglobin Concent 33.7 % Red Cell Distribution Width 12.6 % Platelet Count 131 TH/MM3 Mean Platelet Volume 7.6 FL Neutrophils (%) (Auto) 83.3 % Lymphocytes (%) (Auto) 7.8 % Monocytes (%) (Auto) 8.3 % Eosinophils (%) (Auto) 0.0 % Basophils (%) (Auto) 0.6 % Neutrophils # (Auto) 7.2 TH/MM3 Lymphocytes # (Auto) 0.7 TH/MM3 Monocytes # (Auto) 0.7 TH/MM3 Eosinophils # (Auto) 0.0 TH/MM3 Basophils # (Auto) 0.1 TH/MM3 CBC Comment DIFF FINAL Differential Comment Blood Gas Puncture Site IV Blood Gas Patient Temperature 98.6 Venous Blood pH 7.18 Venous Blood Partial Pressure CO2 16 mmHg Venous Blood Partial Pressure O2 102 mmHg Venous Blood HCO3 6 mmol/L Venous Blood Oxygen Saturation 90 % Venous Blood Oxygen Content 21.3 Vol % Venous Blood Base Excess -21.5 mmol/L Oxygen Delivery Device ROOM AIR Blood Gas Inspired Oxygen 21 % Blood Urea Nitrogen 10 MG/DL Creatinine 0.72 MG/DL Random Glucose 71 MG/DL Total Protein 8.7 GM/DL Albumin 4.7 GM/DL Calcium Level 8.2 MG/DL Alkaline Phosphatase 135 U/L Aspartate Amino Transf (AST/SGOT) 298 U/L Alanine Aminotransferase (ALT/SGPT) 230 U/L Total Bilirubin 1.1 MG/DL Sodium Level 131 MEQ/L Potassium Level 3.7 MEQ/L Chloride Level 97 MEQ/L Carbon Dioxide Level 5.8 MEQ/L Anion Gap 28 MEQ/L Estimat Glomerular Filtration Rate 92 ML/MIN Lipase 3583 U/L Human Chorionic Gonadotropin, Quant LESS THAN 1 MIU/ML Acetaminophen Level LESS THAN 2.0 MCG/ML Ethyl Alcohol Level 287 MG/DL Prothrombin Time 9.7 SEC Prothromb Time International Ratio 1.0 RATIO Activated Partial Thromboplast Time 28.4 SEC Serum Osmolality 367 MOSM/KG Lactic Acid Level 2.5 mmol/L Phosphorus Level 3.7 MG/DL Magnesium Level 2.3 MG/DL Total Creatine Kinase 88 U/L Salicylates Level 4.5 MG/DL B-Hydroxybutyrate 11.62 MMOL/L Urine Color YELLOW Urine Turbidity SL CLOUDY Urine pH 5.5 Urine Specific [place] GREATER/EQUAL 1.030 Urine Protein 100 mg/dL Urine Glucose (UA) NEG mg/dL Urine Ketones 80 OR GREATER mg/dL Urine Occult Blood LARGE Urine Nitrite NEG Urine Bilirubin NEG Urine Urobilinogen 0.2 MG/DL Urine Leukocyte Esterase NEG Urine RBC 100-200 /hpf Urine WBC 3-5 /hpf Urine Squamous Epithelial Cells > 8 /hpf Urine Bacteria MOD /hpf Microscopic Urinalysis Comment CULTURE INDICATED Urine Opiates Screen NEG Urine Barbiturates Screen NEG Urine Amphetamines Screen NEG Urine Benzodiazepines Screen NEG Urine Cocaine Screen POS Urine Cannabinoids Screen NEG Nasal Screen MRSA (PCR) MRSA NOT DETECTED Test 02/10/18 01:27 02/10/18 02:47 02/10/18 06:23 02/10/18 08:54 White Blood Count 6.5 TH/MM3 6.2 TH/MM3 Red Blood Count 3.79 MIL/MM3 3.75 MIL/MM3 Hemoglobin 13.6 GM/DL 13.4 GM/DL Hematocrit 39.5 % 38.9 % Mean Corpuscular Volume 104.3 FL 103.6 FL Mean Corpuscular Hemoglobin 36.0 PG 35.6 PG Mean Corpuscular Hemoglobin Concent 34.5 % 34.3 % Red Cell Distribution Width 13.3 % 13.1 % Platelet Count 78 TH/MM3 82 TH/MM3 Mean Platelet Volume 7.6 FL 8.5 FL Neutrophils (%) (Auto) 78.7 % 79.8 % Lymphocytes (%) (Auto) 10.8 % 9.0 % Monocytes (%) (Auto) 9.7 % 10.6 % Eosinophils (%) (Auto) 0.0 % 0.2 % Basophils (%) (Auto) 0.8 % 0.4 % Neutrophils # (Auto) 5.1 TH/MM3 4.9 TH/MM3 Lymphocytes # (Auto) 0.7 TH/MM3 0.6 TH/MM3 Monocytes # (Auto) 0.6 TH/MM3 0.7 TH/MM3 Eosinophils # (Auto) 0.0 TH/MM3 0.0 TH/MM3 Basophils # (Auto) 0.1 TH/MM3 0.0 TH/MM3 CBC Comment AUTO DIFF AUTO DIFF Differential Comment AUTO DIFF CONFIRMED AUTO DIFF CONFIRMED Platelet Estimate LOW LOW Platelet Morphology Comment NORMAL NORMAL Blood Smear Pathologist Review Blood Urea Nitrogen 6 MG/DL 4 MG/DL Creatinine 0.51 MG/DL 0.51 MG/DL Random Glucose 81 MG/DL 77 MG/DL Total Protein 6.1 GM/DL 6.3 GM/DL Albumin 3.6 GM/DL 3.5 GM/DL Calcium Level 6.2 MG/DL 6.8 MG/DL Phosphorus Level 1.7 MG/DL 2.1 MG/DL Magnesium Level 1.7 MG/DL 2.0 MG/DL Alkaline Phosphatase 98 U/L 91 U/L Aspartate Amino Transf (AST/SGOT) 200 U/L 177 U/L Alanine Aminotransferase (ALT/SGPT) 152 U/L 142 U/L Total Bilirubin 1.0 MG/DL 1.4 MG/DL Sodium Level 141 MEQ/L 142 MEQ/L Potassium Level 3.8 MEQ/L 3.6 MEQ/L Chloride Level 109 MEQ/L 111 MEQ/L Carbon Dioxide Level 10.9 MEQ/L 10.3 MEQ/L Anion Gap 21 MEQ/L 21 MEQ/L Estimat Glomerular Filtration Rate 136 ML/MIN 136 ML/MIN Protein Corrected Calcium 6.7 MG/DL 7.2 MG/DL Troponin I LESS THAN 0.02 NG/ML Triglycerides Level 229 MG/DL Lipase 3983 U/L Fibrinogen 154 mg/dL Hepatitis A IgM Antibody NONREACTIVE Hepatitis B Surface Antigen NONREACTIVE Hepatitis B Core IgM Antibody NONREACTIVE Hepatitis C IgG Antibody NONREACTIVE Lactic Acid Level 1.3 mmol/L Ammonia 40 MCMOL/L Test 02/10/18 12:30 Blood Gas Puncture Site LT RADIAL Blood Gas Patient Temperature 98.6 Blood Gas HCO3 12 mmol/L Blood Gas Base Excess -12.5 mmol/L Blood Gas Oxygen Saturation 93 % Arterial Blood pH 7.36 Arterial Blood Partial Pressure CO2 22 mmHg Arterial Blood Partial Pressure O2 77 mmHg Arterial Blood Oxygen Content 17.2 Vol % Arterial Blood Carboxyhemoglobin 1.8 % Arterial Blood Methemoglobin 1.3 % Blood Gas Hemoglobin 13.1 G/DL Blood Gas Inspired Oxygen 21 % Date/Time Source Procedure Growth Status 02/09/18 21:25 Blood Peripheral Aerobic Blood Culture - Preliminary NO GROWTH IN 1 DAY Resulted 02/09/18 21:25 Blood Peripheral Anaerobic Blood Culture - Preliminary NO GROWTH IN 1 DAY Resulted 02/09/18 21:45 Urine Clean Catch Urine Culture - Preliminary IMMATURE GROWTH - REINCUBATE Resulted Physical Examination HEENT: PERRL; normocephalic; atraumatic; no jaundice. CHEST: CTA CARDIAC: tachy ABDOMEN: Soft, nondistended,epigastric TTP; no hepatosplenomegaly; bowel sounds are present in all four quadrants. EXTREMITIES: No clubbing, cyanosis, or edema. SKIN: Normal; no rash; no jaundice. TRAVEL PT: slurred speech, mildly lethargic (Kriss Hansen) Assessment and Plan Plan ASSESSMENT - abd pain, n/v - pancreatitis. CT suggestive pancreatitis. lipase up to 3900 today. - elevated LFTs - 2/2 etoh most likely. hep panel neg. will get liver w/u to r /o other cause. serum etoh 287 on admission. elevated NH. UDS + cocaine. PLAN - liver w/u - BID lactulose - IVF - NPO - monitor labs - no etoh pt seen by myself and Dr Hernández and this note is on his behalf (Kriss Hansen) Physician Comments Seen and examined with MANAGER EPIC, acute pancreatitis due to etoh. Liver harmon ordered. Aggressive ivf rehydration as per cook box filler. Npo except ice chips for now. D.T protocol. Monitor labs. Advised to quit ETOH. Will follow, thank you (Crista Hernández MD) Kriss Hansen February 10, 2018 13:49 Crista Hernández MD February 10, 2018 15:17
[2018-02-10] MEDS: SODIUM CHLORIDE 0.9% FLUSH 10 ML FLUSH IV FLUSH SCH ×2 (14:19→20:16)
[2018-02-10] MEDS: FAMOTIDINE 20 MG TAB PO SCH ×2 (14:19→20:16)
[2018-02-10] MEDS: SODIUM BICARBONATE 8.4% INJ 150 MEQ in DEXTROSE 5% IN WATE 1000ML INJ 1,000 ML IV SCH ×6 (14:19→23:09)
[2018-02-10] MEDS: DOCUSATE SODIUM 50 MG/SENNA 8.6 MG TAB PO SCH ×2 (14:19→20:16)
[2018-02-10 15:24] LABS: BICARBONATE 14.6 MEQ/L (21.0-32.0); BLOOD UREA NITROGEN 3 MG/DL (7-18); CALCIUM 6.9 MG/DL (8.5-10.1); CHLORIDE 110 MEQ/L (98-107); CREATININE 0.66 MG/DL (0.50-1.00); GLOMERULAR FILTRATION RATE 101 ML/MIN (>89); GLUCOSE,RANDOM 121 MG/DL (74-106); PHOSPHORUS 0.7 MG/DL (2.5-4.9); SODIUM (NA) 142 MEQ/L (136-145)
[2018-02-10 15:25] LABS: TROPONIN I LESS THAN 0.02 NG/ML (0.02-0.05)
[2018-02-10 15:49] LABS: TOTAL PROTEIN 6.9 GM/DL (6.4-8.2)
[2018-02-10 19:30] LABS: BICARBONATE 18.5 MEQ/L (21.0-32.0); CALCIUM 7.6 MG/DL (8.5-10.1); CREATININE 0.59 MG/DL (0.50-1.00)
[2018-02-10] MEDS: THIAMINE INJ 100 MG in SODIUM CHLORIDE 0.9% INJ 100 ML IV SCH (20:16)
[2018-02-10] MEDS: LACTULOSE SYRUP 20 GM/30 ML CUP PO SCH (20:16)
[2018-02-10 21:46] LABS: BICARBONATE 18.6 MEQ/L (21.0-32.0); CALCIUM 7.8 MG/DL (8.5-10.1); CREATININE 0.6 MG/DL (0.50-1.00)
[2018-02-11] VITALS (14 sets, daily range): BP systolic 110–139; BP diastolic 62–90; PULSE 100–121; RESP 18–44; TEMP 98.2–99.8; O2SAT 93–99
--- NOTE | 2018-02-11 02:53 | RADRPT ---
EXAM DATE/TIME: 02/11/2018 02:13 [place] COMPARISON: No previous studies available for comparison. INDICATIONS : Altered mental status. RADIATION DOSE: 56.35 CTDIvol (mGy) MEDICAL HISTORY : None SURGICAL HISTORY : None. ENCOUNTER: Initial ACUITY: 1 day PAIN SCALE: Non-responsive LOCATION: cranial TECHNIQUE: Multiple contiguous axial images were obtained of the head. Using automated exposure control and adj ustment of the mA and/or kV according to patient size, radiation dose was kept as low as reasonably a chievable to obtain optimal diagnostic quality images. DICOM format image data is available electro nically for review and comparison. FINDINGS: CEREBRUM: The ventricles are normal for age. No evidence of midline shift, mass lesion, hemorrhage or acute in farction. No extra-axial fluid collections are seen. POSTERIOR FOSSA: The cerebellum and brainstem are intact. The 4th ventricle is midline. The cerebellopontine angle i s unremarkable. EXTRACRANIAL: The visualized portion of the orbits is intact. SKULL: The calvaria is intact. No evidence of skull fracture. CONCLUSION: Normal examination. Soham Terrell MD on February 11, 2018 at 2:51 Board Certified Radiologist. This report was verified electronically.
[2018-02-11] MEDS: CHLORHEXIDINE GLUCONATE 2 % 1 PACK (2 CLOTHS) TOP SCH (04:00)
[2018-02-11 06:13] LABS: AUTOMATED NEUTROPHIL # 2.9 TH/MM3 (1.8-7.7); BASOPHIL % 0.9 % (0.0-2.0); EOSINOPHIL # 0.1 TH/MM3 (0-0.4); EOSINOPHIL % 1.5 % (0.0-4.0); HEMATOCRIT 34.3 % (35.0-46.0); HEMOGLOBIN 12.2 GM/DL (11.6-15.3); LYMPH % 27.2 % (9.0-44.0); LYMPHOCYTE # 1.3 TH/MM3 (1.0-4.8); MEAN CELL VOLUME 100.3 FL (80.0-100.0); MEAN CORPUSCULAR HEMOGLOBIN 35.8 PG (27.0-34.0); MEAN CORPUSCULAR HGB CONC 35.7 % (32.0-36.0); MEAN PLATELET VOLUME 8.5 FL (7.0-11.0); MONO % 9.3 % (0.0-8.0); MONOCYTE # 0.4 TH/MM3 (0-0.9); NEUT % 61.1 % (16.0-70.0); PLATELET COUNT 73 TH/MM3 (150-450); RED BLOOD COUNT 3.42 MIL/MM3 (4.00-5.30); RED CELL DISTRIBUTION WIDTH 12.8 % (11.6-17.2); WHITE BLOOD COUNT 4.8 TH/MM3 (4.0-11.0)
[2018-02-11 06:15] LABS: PROTHROMBIN TIME - PATIENT 10.4 SEC (9.8-11.6)
[2018-02-11 06:36] LABS: ALBUMIN 3.3 GM/DL (3.4-5.0); ALKALINE PHOSPHATASE 87 U/L (45-117); ALT (GPT) 117 U/L (10-53); AST (GOT) 165 U/L (15-37); BICARBONATE 26.2 MEQ/L (21.0-32.0); BLOOD UREA NITROGEN 2 MG/DL (7-18); CALCIUM 7.8 MG/DL (8.5-10.1); CHLORIDE 105 MEQ/L (98-107); CREATININE 0.48 MG/DL (0.50-1.00); FERRITIN 917 NG/ML (8-252); GLOMERULAR FILTRATION RATE 146 ML/MIN (>89); GLUCOSE,RANDOM 105 MG/DL (74-106); IRON (FE) 107 MCG/DL (50-170); MAGNESIUM 1.6 MG/DL (1.5-2.5); PHOSPHORUS 0.9 MG/DL (2.5-4.9); SODIUM (NA) 142 MEQ/L (136-145); TOTAL BILIRUBIN ADULT 1.5 MG/DL (0.2-1.0); TOTAL IRON BINDING CAPACITY 210 MCG/DL (250-450)
[2018-02-11 07:08] LABS: BANDS 2 % (0-6); BASOPHILS 1 % (0-2); CORRECTED NUCLEATED RBC 1 /100 WBC (0-0); LYMPHOCYTES 13 % (9-44); MONOCYTES 3 % (0-8); NEUTROPHIL # MANUAL DIFF 3.9 TH/MM3 (1.8-7.7); NUCLEATED RED BLOOD CELL 1 (0-0); POLYS (SEG NEUTROPHILS) 80 % (16-70)
[2018-02-11] MEDS: LACTULOSE SYRUP 20 GM/30 ML CUP PO SCH ×2 (07:29→21:22)
[2018-02-11] MEDS: LORazepam 2 MG TAB PO PRN ×2 (07:29→13:26)
[2018-02-11] MEDS: FAMOTIDINE 20 MG TAB PO SCH ×2 (07:29→21:22)
[2018-02-11] MEDS: D5-LR + KCL 20 MEQ INJ 1,000 ML IV SCH ×3 (07:29→16:00)
[2018-02-11] MEDS: DOCUSATE SODIUM 50 MG/SENNA 8.6 MG TAB PO SCH ×2 (07:29→21:00)
[2018-02-11] MEDS: SODIUM CHLORIDE 0.9% FLUSH 10 ML FLUSH IV FLUSH SCH ×2 (07:36→21:00)
--- NOTE | 2018-02-11 08:39 | HHI.CCPN ---
Subjective Remarks/Hospital Course 02/10: 38-year-old female with past medical history of chronic alcohol dependence who presented to [facility] with a 3 day history of nausea vomiting and abdominal pain. She denies hematemesis or melena. Workup revealed acute pancreatitis. She had sinus tachycardia in the 110s but was normotensive. Her lipase was 3500, transaminases were elevated in the [address] abdomen and pelvis is consistent with acute pancreatitis. There is no evidence of biliary obstruction. She also has acute alcoholic ketoacidosis with bicarbonate 5.8, anion gap 28, glucose 71, beta hydroxy hydroxybutyrate of 11.6. PH is 7.18/PaCO2 of 16. She is hemoconcentrated with hemoglobin of 16.7. Creatinine is normal. She admits to using cocaine and alcohol. She denies toxic alcohol ingestion. Her EtOH level was 287. She is transferred to [facility] for personnel consultant admission. At [place] she received 4 L of normal saline bolus, bicarb 100 mEq, Phenergan 25 mg IM, Ativan 1 mg IV. She denies prior history of pancreatitis though she is not completely reliable historian at this point as she appears to be experiencing early alcohol withdrawal symptom versus stimulant toxicity. Mental status was reportedly normal at [place]. 02/11: Resting in bed, comfortable. still has abdominal discomfort. Denies nausea / vomiting. Noted to have unequal pupils this morning with right pupil 2mm and left pupil 4mm. Denies any weakness in upper or lower extremities. Denies any visual disturbance. Objective Vital Signs Date Time Temp Pulse Resp B/P (MAP) Pulse Ox O2 Delivery O2 Flow Rate FiO2 02/11/18 04:00 98.5 102 22 120/72 (88) 97 02/09/18 23:10 Room Air Intake and Output 02/11/18 02/11/18 02/12/18 08:00 16:00 00:00 Intake Total 1580 ml Balance 1580 ml Result Diagram: 02/11/18 0537 02/11/18 0537 Other Results Laboratory Tests Test 02/10/18 12:30 Blood Gas Puncture Site LT RADIAL Blood Gas Patient Temperature 98.6 Blood Gas HCO3 12 mmol/L (22-26) Blood Gas Base Excess -12.5 mmol/L (-2-2) Blood Gas Oxygen Saturation 93 % (90-100) Arterial Blood pH 7.36 (7.380-7.420) Arterial Blood Partial Pressure CO2 22 mmHg (38-42) Arterial Blood Partial Pressure O2 77 mmHg (61-120) Arterial Blood Oxygen Content 17.2 Vol % (12.0-20.0) Arterial Blood Carboxyhemoglobin 1.8 % (0-4) Arterial Blood Methemoglobin 1.3 % (0-2) Blood Gas Hemoglobin 13.1 G/DL (12.0-16.0) Blood Gas Inspired Oxygen 21 % Objective Remarks GENERAL: Well-nourished, well-developed patient who is laying in ISC bed. She is awake and conversant. SKIN: Warm and dry. HEAD: Atraumatic. Normocephalic. EYES: Pupils unequal 4 mm(left) and 2mm right. No scleral icterus. No injection or drainage. ENT: No nasal bleeding or discharge. Mucous membranes pink and moist. NECK: Trachea midline. No JVD. CARDIOVASCULAR: S1S2 regular. No murmurs rubs or gallops. RESPIRATORY: Breathing comfortably on room air with no accessory muscle use. Sats are 97%. No wheezes rales or rhonchi. GASTROINTESTINAL: Abdomen soft, non-tender, nondistended. Specifically she denies epigastric tenderness. Bowel sounds are present. She has large tattoo over her abdomen. MUSCULOSKELETAL: Extremities without clubbing, cyanosis. There is trace bipedal edema. NEUROLOGICAL: Awake and alert. She answered all questions of orientation correctly. Unequal pupils right 2mm, left 4mm. partial ptosis of right eye. She is moving all extremities spontaneously and vigorously without apparent focal deficit. A/P Problem List: (1) Hypocalcemia ICD Code: E83.51 - Hypocalcemia Status: Acute (2) Alcohol intoxication ICD Code: F10.929 - Alcohol use, unspecified with intoxication, unspecified Status: Acute (3) Dehydration, severe ICD Code: E86.0 - Dehydration Status: Acute (4) Pancreatitis, alcoholic, acute ICD Code: K85.20 - Alcohol induced acute pancreatitis without necrosis or infection Status: Acute (5) Alcoholic ketosis ICD Code: E87.2 - Acidosis Status: Acute (6) Cocaine abuse ICD Code: F14.10 - Cocaine abuse, uncomplicated Status: Acute (7) Tobacco abuse ICD Code: Z72.0 - Tobacco use Status: Chronic (8) EtOH dependence ICD Code: F10.20 - Alcohol dependence, uncomplicated Status: Chronic (9) Transaminitis ICD Code: R74.0 - Nonspecific elevation of levels of transaminase and lactic acid dehydrogenase [LDH] (10) Thrombocytopenia ICD Code: D69.6 - Thrombocytopenia, unspecified Status: Chronic (11) Macrocytosis without anemia ICD Code: D75.89 - Other specified diseases of blood and blood-forming organs Status: Chronic Assessment and Plan NEURO/TOX: Acute encephalopathy Alcohol dependence Cocaine abuse PTSD/anxiety/depression 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 IV MVI/thiamine/folate. Can be transitioned to p.o. when appropriate Precedex as needed for EtOH withdrawal. Osmole gap is 19 but this could be multifactorial due to ketoacidosis (acetone) . She denies toxic alcohol ingestion and she was pretty forthcoming with drug history. Alcohol cessation counseling discussed Patient states she was no longer taking an SSRI RESP: Tobacco abuse Tobacco cessation counseling discussed IS q1 hour awake Albuterol every 2 hours as needed for wheezing CV: Hypertriglyceridemia - not causative for pancreatitis and can be addressed when acute issues with pancreatitis/elevated LFTs resolve. EKG shows sinus tachycardia with PACs. There is some nonspecific ST changes in V4-V6 Patient denies chest pain Follow-up EKG and troponin GI: Acute pancreatitis -CT abdomen pelvis consistent with acute pancreatitis. No evidence of biliary obstruction. Check triglycerides which are only mildly elevated and not causative. She denies use of any medications. This is likely alcohol induced Transaminitis. - Likely alcohol induced. Discriminant function is not high. F/ u Viral hepatitis panel N.p.o. for now. Trend lipase FEN/RENAL: Acute alcoholic ketoacidosis Ketonuria Hypocalcemia Patient was given 4 L of 0.9 NaCl in the emergency department and bicarb 100 mEq IV. D5 0.9 NaCl with 30 mEq of KCl per liter at 125 mL/h Ordered 40 mEq of potassium (20 po/20 IV) anticipating downtrend as acidemia corrects Follow magnesium and phosphorus which will likely drop as well. Replace as indicated. Gave calcium gluconate 2 g IV. CPK is normal Creatinine is normal, follow ID: SIRS secondary to acute pancreatitis Obtain blood culture. Follow-up. Urinalysis with moderate bacteria. Specimen contaminated with squamous cells and patient is currently menstruating. She has no urinary symptoms so this may be a contaminant. We will follow-up urine culture Monitor off antibiotics at this time HEME: Thrombocytopenia Erythrocyte macrocytosis Was volume depleted and hemoconcentrated on admission. Has erythrocyte macrocytosis which is likely secondary to alcohol abuse. Thrombocytopenia may be secondary to alcohol use as well, versus consumptive secondary to SIRS. PTT is not prolonged as would be expected with DIC. Will check fibrinogen. Trend platelets via CBC. Check peripheral smear. Check lower extremity u/s to evaluate for DVT as source of plt consumption as she is at higher risk due to frequent drug use and incapacitation. ENDO: No acute issues apparent at this time. PROPH: SCD for DVT prophylaxis. Lovenox 40mg daily starting 02/11. ACCESS: Peripheral IV providing adequate access at this time Full code Problem Qualifiers (1) Alcohol intoxication: Qualified Codes: F10.929 - Alcohol use, unspecified with intoxication, unspecified (2) Pancreatitis, alcoholic, acute: Qualified Codes: K85.20 - Alcohol induced acute pancreatitis without necrosis or infection Del Reddy MD February 11, 2018 08:39
[2018-02-11] MEDS: REMOVE OLD PATCH T-DERMAL SCH (09:00)
--- NOTE | 2018-02-11 09:30 | PD.CONS ---
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 She is unable to tell me why she is in the hospital. From chart appears she has acute pancreatitis and hx of alcohol abuse. Pt reports hx of HTN but no other health issues. She denies hx of seizure or stroke. No changes in vision. No sensory changes or weakness. Denies sweating on one side of her face. No facial droop. Reports hx of alcohol abuse about 5 drinks per day, beer and vodka. She smokes 1ppd x 15-20 yrs. Denies IV drug use, reports she tried Cocaine for the first time about a week ago. (Ximena Arevalo) Review of Systems All other ROS: ROS reviewed as documented in chart (Ximena Arevalo) Past Family Social History Allergies: Coded Allergies: No Known Allergies (Verified Allergy, Unknown, 02/09/18) Past Medical History HTN Past Surgical History tummy tuck, breast augmentation, umbilical surgery Active Ordered Medications Current Medications Medications (Trade) Dose Ordered Sig/Hira Route Start Time Stop Time Status Last Admin Multivitamins 10 ml/Folic Acid 1 mg/Sodium Chloride 510.2 ml @ 125 mls/hr Q24H IV 02/09/18 21:15 02/14/18 21:14 02/10/18 20:35 Thiamine HCl 100 mg/Sodium Chloride 101 ml @ 100 mls/hr Q24H IV 02/09/18 21:15 02/12/18 21:14 02/10/18 20:16 (Romazicon Inj) 0.2 mg Q1M PRN IV PUSH 02/09/18 21:15 (Ativan) 1 mg Q4H PRN PO 02/09/18 21:15 (Ativan Inj) 1 mg Q4H PRN IV PUSH 02/09/18 21:15 (Ativan) 2 mg Q2H PRN PO 02/09/18 21:15 02/11/18 07:29 (Ativan Inj) 2 mg Q2H PRN IV PUSH 02/09/18 21:15 02/10/18 20:17 (Ativan Inj) 2 mg Q1H PRN IV PUSH 02/09/18 21:15 02/10/18 03:21 (Ativan Inj) 2 mg Q15M PRN IV PUSH 02/09/18 21:15 (NS Flush) 2 ml UNSCH PRN IV FLUSH 02/09/18 21:15 (NS Flush) 2 ml BID IV FLUSH 02/10/18 09:00 02/10/18 20:16 (Pepcid) 20 mg Q12HR PO 02/10/18 09:00 02/11/18 07:29 (Zofran Inj) 4 mg Q6H PRN IV PUSH 02/09/18 21:15 02/09/18 22:54 (Albuterol Neb) 2.5 mg Q2HR NEB PRN INH 02/09/18 21:15 ([facility] [place] [facility]) 1 Q361D XX 02/09/18 21:15 02/09/18 21:15 (Chlorhexidine 2% Cloth) 3 pack Taper DAILY@04 TOP 02/10/18 04:00 02/06/19 03:59 02/11/18 04:00 (Chlorhexidine 2% Cloth) 3 pack UNSCH PRN TOP 02/09/18 21:15 (Dahlia-Colace) 1 tab BID PO 02/10/18 09:00 02/11/18 07:29 (Milk Of Magnesia Liq) 30 ml Q12H PRN PO 02/09/18 21:15 (Senokot) 17.2 mg Q12H PRN PO 02/09/18 21:15 (Dulcolax Supp) 10 mg DAILY PRN RECTAL 02/09/18 21:15 (Lactulose Liq) 30 ml DAILY PRN PO 02/09/18 21:15 Dexmedetomidine HCl 200 mcg/ Sodium Chloride 52 ml @ 3.7 mls/hr TITRATE PRN IV 02/10/18 02:30 02/10/18 04:00 Potassium Chloride 100 ml @ 50 mls/hr Q2H PRN IV 02/10/18 02:30 Potassium Chloride 100 ml @ 50 mls/hr Q2H PRN IV 02/10/18 02:30 (K-Lyte Cl Eff) 50 meq UNSCH PRN PO 02/10/18 02:30 Potassium Chloride 100 ml @ 25 mls/hr UNSCH PRN IV 02/10/18 02:30 Potassium Chloride 100 ml @ 50 mls/hr Q2H PRN IV 02/10/18 02:30 Magnesium Sulfate 4 gm/Sodium Chloride 100 ml @ 50 mls/hr UNSCH PRN IV 02/10/18 02:30 (Mag-Ox) 800 mg UNSCH PRN PO 02/10/18 02:30 Magnesium Sulfate 2 gm/Sodium Chloride 100 ml @ 50 mls/hr UNSCH PRN IV 02/10/18 02:30 (K-Phos) 2,000 mg Q4H PRN PO 02/10/18 02:30 Sodium Phosphate 30 mmol/Sodium Chloride 250 ml @ 42 mls/hr UNSCH PRN IV 02/10/18 02:30 (K-Phos) 2,000 mg UNSCH PRN PO/TUBE 02/10/18 02:30 Potassium Phosphate 30 mmol/ Sodium Chloride 260 ml @ 42 mls/hr UNSCH PRN IV 02/10/18 02:30 02/10/18 21:22 Sodium Bicarbonate 150 meq/Dextrose 1,150 ml @ 125 mls/hr Q9H12M IV 02/10/18 12:00 Future Hold 02/10/18 23:09 (Lactulose Liq) 30 ml BID PO 02/10/18 21:00 02/11/18 07:29 Potassium Cl/ Dextrose/Lact Ringer's 1,000 ml @ 125 mls/hr Q8H IV 02/11/18 00:00 02/11/18 07:29 (Habitrol 7 Mg Patch.24 Hr) 1 patch DAILY T-DERMAL 02/11/18 09:00 UNV Miscellaneous Information 1 DAILY T-DERMAL 02/11/18 09:00 UNV Family History noncontributory Social History drinks about 5 beers or vodka daily, 1ppd of cigarettes x 15-20 yrs, used cocaine once a week ago, no IV drug use (Ximena Arevalo) Exam I&O / VS Vital Signs Date Time Temp Pulse Resp B/P (MAP) Pulse Ox O2 Delivery O2 Flow Rate FiO2 02/11/18 04:00 98.5 102 22 120/72 (88) 97 02/11/18 00:00 99.0 100 31 110/68 (82) 99 02/10/18 20:00 98.9 111 31 140/74 (96) 96 02/10/18 18:00 114 02/10/18 17:00 119 02/10/18 16:00 98.7 110 29 131/85 (100) 98 02/10/18 16:00 110 02/10/18 15:42 112 02/10/18 15:00 119 02/10/18 14:00 116 02/10/18 13:00 119 02/10/18 12:00 98.7 124 44 130/82 (98) 84 02/10/18 12:00 124 02/10/18 11:00 114 02/10/18 10:00 111 General: No acute distress Eye: EOMI Respiratory: Non-labored respirations Neurologic: Alert, Oriented, Normal sensory, Normal motor, No focal defects Exam Comments orient to place and self, left pupil 4mm, right pupil 2mm, both are reactive to light, no ptsosis noted, no facial droop, normal to light touch on both sides of face, f-n-f intact, no drift, gait withheld, no bruit (Ximena Arevalo) Review/Management Diagnosis unequal pupils- 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 d/w PA. agree with above. on my exam, no ptosis. ou 5-4mm sym. pt seen with her rn cxr no apical mass. f/u rest of imaging for now. will follow peripherally Diagnosis/Plan: (Phoenix Senior MD) Problem Qualifiers (1) Pancreatitis, alcoholic, acute: Qualified Codes: K85.20 - Alcohol induced acute pancreatitis without necrosis or infection Ximena Arevalo February 11, 2018 09:30 Phoenix Senior MD February 11, 2018 16:13
--- NOTE | 2018-02-11 12:41 | HHI.GIFU ---
Subjective Remarks Pt resting in bed Complaining of back and side pain Large BM this morning Complaining of nausea, denies emesis Mild abdominal pain (Tiffani Boucher) Objective Vitals I&O Vital Signs Date Time Temp Pulse Resp B/P (MAP) Pulse Ox O2 Delivery O2 Flow Rate FiO2 02/11/18 04:00 98.5 102 22 120/72 (88) 97 02/11/18 00:00 99.0 100 31 110/68 (82) 99 02/10/18 20:00 98.9 111 31 140/74 (96) 96 02/10/18 18:00 114 02/10/18 17:00 119 02/10/18 16:00 98.7 110 29 131/85 (100) 98 02/10/18 16:00 110 02/10/18 15:42 112 02/10/18 15:00 119 02/10/18 14:00 116 02/10/18 13:00 119 I/O 02/10/18 02/10/18 02/10/18 02/11/18 02/11/18 02/11/18 07:00 15:00 23:00 07:00 15:00 23:00 Intake Total 896 ml 410 ml 2670 ml Balance 896 ml 410 ml 2670 ml Intake Oral 0 ml 200 ml 50 ml IV Total 896 ml 210 ml 2620 ml # Voids 3 6 4 # Bowel Movements 0 0 # Sanitary Pads 1 Pads 1 Pads 2 Pads 1 Pads 1 Pads 1 Pads 2 Pads 0 Pads 2 Pads 1 Pads Laboratory Laboratory Tests Test 02/10/18 12:30 02/10/18 13:34 02/10/18 18:19 02/10/18 19:49 Blood Gas Puncture Site LT RADIAL Blood Gas Patient Temperature 98.6 Blood Gas HCO3 12 Blood Gas Base Excess -12.5 Blood Gas Oxygen Saturation 93 Arterial Blood pH 7.36 Arterial Blood Partial Pressure CO2 22 Arterial Blood Partial Pressure O2 77 Arterial Blood Oxygen Content 17.2 Arterial Blood Carboxyhemoglobin 1.8 Arterial Blood Methemoglobin 1.3 Blood Gas Hemoglobin 13.1 Blood Gas Inspired Oxygen 21 Blood Urea Nitrogen 3 3 2 Creatinine 0.66 0.59 0.60 Random Glucose 121 139 138 Total Protein 6.9 Calcium Level 6.9 7.6 7.8 Phosphorus Level 0.7 0.5 Sodium Level 142 139 139 Potassium Level 3.4 2.9 2.8 Chloride Level 110 106 105 Carbon Dioxide Level 14.6 18.5 18.6 Anion Gap 17 15 15 Estimat Glomerular Filtration Rate 101 115 113 Protein Corrected Calcium 7.0 Troponin I LESS THAN 0.02 Test 02/11/18 05:37 White Blood Count 4.8 Red Blood Count 3.42 Hemoglobin 12.2 Hematocrit 34.3 Mean Corpuscular Volume 100.3 Mean Corpuscular Hemoglobin 35.8 Mean Corpuscular Hemoglobin Concent 35.7 Red Cell Distribution Width 12.8 Platelet Count 73 Mean Platelet Volume 8.5 Neutrophils (%) (Auto) 61.1 Lymphocytes (%) (Auto) 27.2 Monocytes (%) (Auto) 9.3 Eosinophils (%) (Auto) 1.5 Basophils (%) (Auto) 0.9 Neutrophils # (Auto) 2.9 Lymphocytes # (Auto) 1.3 Monocytes # (Auto) 0.4 Eosinophils # (Auto) 0.1 Basophils # (Auto) 0.0 CBC Comment AUTO DIFF Differential Total Cells Counted 100 Neutrophils % (Manual) 80 Band Neutrophils % 2 Lymphocytes % 13 Monocytes % 3 Eosinophils % 1 Basophils % 1 Neutrophils # (Manual) 3.9 Nucleated Red Blood Cells 1 Differential Comment FINAL DIFF MANUAL Platelet Estimate LOW Platelet Morphology Comment NORMAL Prothrombin Time 10.4 Prothromb Time International Ratio 1.0 Blood Urea Nitrogen 2 Creatinine 0.48 Random Glucose 105 Total Protein 6.0 Albumin 3.3 Calcium Level 7.8 Phosphorus Level 0.9 Magnesium Level 1.6 Alkaline Phosphatase 87 Aspartate Amino Transf (AST/SGOT) 165 Alanine Aminotransferase (ALT/SGPT) 117 Total Bilirubin 1.5 Sodium Level 142 Potassium Level 2.9 Chloride Level 105 Carbon Dioxide Level 26.2 Anion Gap 11 Estimat Glomerular Filtration Rate 146 Iron Level 107 Total Iron Binding Capacity 210 Percent Iron Saturation 51.0 Ferritin 917 Lipase 5419 Tumor Marker Alpha Fetoprotein 3.4 Date/Time Source Procedure Growth Status 02/09/18 21:25 Blood Peripheral Aerobic Blood Culture - Preliminary NO GROWTH IN 2 DAYS Resulted 02/09/18 21:25 Blood Peripheral Anaerobic Blood Culture - Preliminary NO GROWTH IN 2 DAYS Resulted 02/09/18 21:45 Urine Clean Catch Urine Culture - Final 10-50,000 CFU/ML MIXED GRAM POSITIVE ... Complete Imaging Last Impressions Lower Extremity Ultrasound 02/10/18 0000 Signed Impressions: Service Date/Time: Saturday, February 10, 2018 08:12 - CONCLUSION: No DVT. Hector Maloney MD Head CT 02/10/18 0000 Signed Impressions: Service Date/Time: Sunday, February 11, 2018 02:13 - CONCLUSION: Normal examination. Soham Terrell MD Chest X-Ray 02/09/18 0000 Signed Impressions: Service Date/Time: Saturday, February 10, 2018 01:03 - CONCLUSION: Normal examination. Soham Terrell MD Abdomen/Pelvis CT 02/09/18 0000 Signed Impressions: Service Date/Time: Friday, February 09, 2018 21:29 - CONCLUSION: 1. Enlargement of the pancreatic head with peripancreatic fluid suggesting acute pancreatitis. Correlation with amylase and lipase size is recommended. 2. Enlarged fatty liver. 3. Ventral abdominal wall hernia to the right of midline containing only fat. Nicola Morris MD Physical Exam HEENT: Normocephalic; atraumatic; (+) icterus CHEST: Even/unlabored CARDIAC: RRR ABDOMEN: Soft, nondistended, diffuse abdominal tenderness, bowel sounds active EXTREMITIES: No clubbing, cyanosis, or edema. SKIN: Normal; no rash; no jaundice. TROMMEL TENDER: Alert and oriented times three. (Tiffani Boucher [facility]) Assessment and Plan Plan ASSESSMENT - Acute pancreatitis secondary to ETOH Lipase [address] abdomen and pelvis W IV contrast (02/09) --> Enlargement of the pancreatic head with peripancreatic fluid suggesting acute pancreatitis. Correlation with amylase and lipase size is recommended. Enlarged fatty liver. Ventral abdominal wall hernia to the right of midline containing only fat. - Elevated LFTs AST-298 ALT-230 T bili-1.1 Alk phos-135 Iron-107 TIBC-210 %sat-51 Ferritin-917 Hepatitis panel negative. AFP-3.4 FELIPE, AMA, ASMA pending. A1A and Ceruloplasmin pending. - Alcohol acidosis- pH 7.18 on venous blood gas on admission- Bicarb gtt now DCd - Thrombocytopenia- platelets- 73 (02/11) Pt complaining of nausea, denies emesis. Continue abdominal pain. ' Hypocalcemia- calcium-7.8 Initial drop in H/H now stabilized. Hypokalemia noted- replacement per attending On Pepcid, IVF Pt being worked up for possible Van syndrome. PLAN - IVF - Pepcid - Pain control - Antiemetics PRN - Monitor LFTs - Liver MENJIVAR pending - Alcohol withdraw protocol - Supportive care - Further recommendations based on clinical course and findings of above Pt has been seen and examined by myself and Dr. Hernández and this note is written on his behalf (Tiffani Boucher) Physician Comments Seen and examined with S[employer]OL PH[employer] THERAPIST, still with abdominal pain. Lipase going up. Liquid diet. Being transferred to medicine floor.IVF hydration. Ativan/zofran for etoh withdrawal (Crista Hernández MD) Tiffani Boucher February 11, 2018 12:41 Crista Hernández MD February 11, 2018 17:39
[2018-02-11] MEDS: NICOTINE 7 MG/24 HR PATCH T-DERMAL SCH (13:29)
--- NOTE | 2018-02-11 15:28 | RADRPT ---
EXAM DATE/TIME: 02/11/2018 14:56 [facility] COMPARISON: CT BRAIN W/O CONTRAST, February 11, 2018, 2:13. INDICATIONS : Right eye droop with uneven pupils. MEDICAL HISTORY : None. SURGICAL HISTORY : abdominoplasty, breast augmentation ENCOUNTER: Subsequent ACUITY: 2 day PAIN SCORE: 0/10 LOCATION: cranial TECHNIQUE: Multiplanar, multisequence MRI of the brain was performed without contrast. FINDINGS: CEREBRUM: The ventricles are normal for age. No evidence of midline shift, mass lesion, hemorrhage or acute in farction. No extraaxial fluid collections are seen. The pituitary gland and suprasellar cistern are normal in configuration. WHITE MATTER: No significant signal abnormalities are seen in the white matter. POSTERIOR FOSSA: The cerebellum and brainstem are intact. The 4th ventricle is midline. The cerebellopontine angle is unremarkable. The cerebellar tonsils are normal in position. DIFFUSION IMAGING: No focal areas of restricted diffusion are seen. No evidence of acute infarction. EXTRACRANIAL: The visualized portions of the orbits and paranasal sinuses are unremarkable. CONCLUSION: Normal examination. Hector Lomeli MD on February 11, 2018 at 15:24 Board Certified Radiologist. This report was verified electronically.
[2018-02-11] MEDS ORDERED: IOHEXOL 350 MG/ML 10 ML VIAL (for RAD DIAG) IVCONTRAST ONE (15:36)
--- NOTE | 2018-02-11 16:23 | RADRPT ---
EXAM DATE/TIME: 02/11/2018 15:22 [facility] COMPARISON: No previous studies available for comparison. INDICATIONS : Unequal pupils, evaluate for dissection. IV CONTRAST: 75 cc Omnipaque 350 (iohexol) IV ; Cumulative dose for multiple exams. RADIATION DOSE: 9.91 CTDIvol (mGy) ; Combined studies MEDICAL HISTORY : None SURGICAL HISTORY : None. ENCOUNTER: Initial ACUITY: 1 day PAIN SCALE: 0/10 LOCATION: cranial Elevated flow velocities and ICA/CCA ratios have been found to correlate with increased degrees of vessel stenosis, calculated as percentage of diameter relative to a normal segment of distal ICA/CCA. TECHNIQUE: Volumetric scanning was performed using a multirow detector CT scanner. The data was post processed with a variety of visualization algorithms including full-volume maximum intensity projection, multip lanar sliding thin-slab reformation, curved-planar reformation, and surface-rendering techniques. Us ing automated exposure control and adjustment of the mA and/or kV according to patient size, radiatio n dose was kept as low as reasonably achievable to obtain optimal diagnostic quality images. DICOM f ormat image data is available electronically for review and comparison. FINDINGS: AORTIC ARCH: There is a three-vessel origin of the great vessels from the aorta. No evidence of ostial narrowing. RIGHT CAROTID: The common carotid artery is intact. The carotid bulb has a normal configuration without ulceration o r narrowing. The internal carotid artery lumen is smooth without stenosis. The external carotid dianne ry is intact. LEFT CAROTID: The common carotid artery is intact. The carotid bulb has a normal configuration without ulceration or narrowing. The internal carotid artery lumen is smooth without stenosis. The external carotid ar becka is intact. VERTEBRALS: The vertebral arteries have a symmetric diameter. No stenotic lesions are seen. CONCLUSION: Negative exam. Cervical and arch vessels are widely patent throughout with no significant athero sclerotic disease. Shubham Lazo MD on February 11, 2018 at 16:17 Board Certified Radiologist. This report was verified electronically.
--- NOTE | 2018-02-11 16:36 | RADRPT ---
EXAM DATE/TIME: 02/11/2018 15:22 [facility] COMPARISON: No previous studies available for comparison. INDICATIONS : Unequal pupils, evaluate for dissection. IV CONTRAST: 75 cc Omnipaque 350 (iohexol) IV ; Cumulative dose for multiple exams. RADIATION DOSE: 9.91 CTDIvol (mGy) ; Combined studies MEDICAL HISTORY : None SURGICAL HISTORY : None. ENCOUNTER: Initial ACUITY: 1 day PAIN SCALE: 0/10 LOCATION: cranial TECHNIQUE: Volumetric scanning was performed using a multi-row detector CT scanner. The data was post processed with a variety of visualization algorithms including full volume maximum intensity projection, multi -planar sliding thin slab reformation, curved planar reformation, and surface rendering techniques. Using automated exposure control and adjustment of the mA and/or kV according to patient size, radiat ion dose was kept as low as reasonably achievable to obtain optimal diagnostic quality images. DICO M format image data is available electronically for review and comparison. FINDINGS: Anterior circulation: Distal intracranial internal carotid arteries are patent with flow extending to the middle and anteri or cerebral arteries. There is no evidence for aneurysm, vessel truncation or stenosis, and no eviden ce for vascular malformation. Posterior circulation: Symmetric distal vertebral arteries with flow extending to basilar artery. There is no evidence for aneurysm, vessel truncation or stenosis, and no evidence for vascular malformation. CONCLUSION: 1. Unremarkable head CTA examination. No evidence for large vessel occlusion or flow-limiting lesion. Hans Obrien MD on February 11, 2018 at 16:32 Board Certified Radiologist. This report was verified electronically.
[2018-02-11] MEDS: ONDANSETRON HCL 4 MG/2 ML VIAL IV PUSH PRN (17:34)
[2018-02-11 17:53] LABS: % SATURATION IRON PROFILE 31.6 % (20-50); IRON (FE) 61 MCG/DL (50-170); TOTAL IRON BINDING CAPACITY 193 MCG/DL (250-450)
[2018-02-11 17:56] LABS: FERRITIN 627 NG/ML (8-252)
[2018-02-11] MEDS ORDERED: IBUPROFEN 400 MG TAB PO ONE (20:45)
[2018-02-11] MEDS: LORazepam 1 MG TAB PO PRN (21:32)
[2018-02-11] MEDS: THIAMINE INJ 100 MG in SODIUM CHLORIDE 0.9% INJ 100 ML IV SCH (22:13)
[2018-02-11] MEDS: MULTIVITAMIN INJ 10 ML, FOLIC ACID INJ 1 MG in SODIUM CHLORID 0.9% 500 ML INJ 500 ML IV SCH (22:14)
[2018-02-12] VITALS (9 sets, daily range): BP systolic 114–147; BP diastolic 75–94; PULSE 90–106; RESP 17–21; TEMP 97.7–98.6; O2SAT 94–99
[2018-02-12] MEDS: CHLORHEXIDINE GLUCONATE 2 % 1 PACK (2 CLOTHS) TOP SCH (03:36)
[2018-02-12 07:41] LABS: BASOPHIL # 0.1 TH/MM3 (0-0.2); BASOPHIL % 1.3 % (0.0-2.0); EOSINOPHIL # 0.1 TH/MM3 (0-0.4); HEMATOCRIT 31.4 % (35.0-46.0); LYMPH % 34.9 % (9.0-44.0); LYMPHOCYTE # 1.4 TH/MM3 (1.0-4.8); MEAN CELL VOLUME 101.1 FL (80.0-100.0); MEAN CORPUSCULAR HEMOGLOBIN 35.5 PG (27.0-34.0); MEAN CORPUSCULAR HGB CONC 35.1 % (32.0-36.0); MONO % 9.9 % (0.0-8.0); MONOCYTE # 0.4 TH/MM3 (0-0.9); NEUT % 50.9 % (16.0-70.0); PLATELET COUNT 58 TH/MM3 (150-450); RED CELL DISTRIBUTION WIDTH 12.3 % (11.6-17.2)
[2018-02-12] MEDS: SODIUM CHLORIDE 0.9% FLUSH 10 ML FLUSH IV FLUSH SCH ×2 (07:41→20:28)
[2018-02-12] MEDS: FAMOTIDINE 20 MG TAB PO SCH ×2 (07:53→20:28)
[2018-02-12] MEDS: NICOTINE 7 MG/24 HR PATCH T-DERMAL SCH (07:53)
[2018-02-12] MEDS: REMOVE OLD PATCH T-DERMAL SCH (07:53)
[2018-02-12] MEDS: D5-LR + KCL 20 MEQ INJ 1,000 ML IV SCH ×4 (07:55→23:24)
[2018-02-12] MEDS: LACTULOSE SYRUP 20 GM/30 ML CUP PO SCH ×2 (07:56→20:28)
[2018-02-12] MEDS: DOCUSATE SODIUM 50 MG/SENNA 8.6 MG TAB PO SCH (07:56)
[2018-02-12 07:57] LABS: ALBUMIN 3.1 GM/DL (3.4-5.0); ALKALINE PHOSPHATASE 86 U/L (45-117); ALT (GPT) 91 U/L (10-53); AST (GOT) 114 U/L (15-37); BICARBONATE 29.3 MEQ/L (21.0-32.0); BLOOD UREA NITROGEN LESS THAN 1 MG/DL (7-18); CHLORIDE 104 MEQ/L (98-107); CREATININE 0.25 MG/DL (0.50-1.00); GLOMERULAR FILTRATION RATE 311 ML/MIN (>89); GLUCOSE,RANDOM 99 MG/DL (74-106); SODIUM (NA) 142 MEQ/L (136-145); TOTAL BILIRUBIN ADULT 1.2 MG/DL (0.2-1.0); TOTAL PROTEIN 5.5 GM/DL (6.4-8.2)
[2018-02-12] MEDS: LORazepam 1 MG TAB PO PRN (08:03)
--- NOTE | 2018-02-12 10:34 | HHI.PR ---
Subjective Remarks Patient reports having mild nausea this morning. But nursing says that she does want to eat and the patient does affirm this. Patient says that she would like some pain control. Objective Vital Signs Date Time Temp Pulse Resp B/P (MAP) Pulse Ox O2 Delivery O2 Flow Rate FiO2 02/12/18 08:00 98.3 96 20 137/84 (101) 94 02/12/18 04:00 90 02/12/18 04:00 98.2 96 17 114/80 (91) 94 02/12/18 00:00 98.6 100 21 126/75 (92) 97 02/11/18 20:00 98.5 105 18 120/82 (95) 98 02/11/18 20:00 106 02/11/18 18:00 98.2 102 20 139/62 (87) 98 02/11/18 16:43 105 43 134/73 (93) 02/11/18 16:00 106 02/11/18 16:00 106 33 97 02/11/18 15:46 102 21 126/90 (102) 93 02/11/18 14:00 121 02/11/18 14:00 121 44 02/11/18 13:27 119 02/11/18 13:27 119 41 129/85 (100) 02/11/18 12:00 99.8 107 24 95 02/11/18 12:00 107 I/O 02/11/18 02/11/18 02/11/18 02/12/18 02/12/18 02/12/18 07:00 15:00 23:00 07:00 15:00 23:00 Intake Total 2670 ml 740 ml Balance 2670 ml 740 ml Intake Oral 50 ml 240 ml IV Total 2620 ml 500 ml # Voids 4 4 # Bowel Movements 0 1 # Sanitary Pads 2 Pads 1 Pads 1 Pads 1 Pads 1 Pads 0 Pads 1 Pads 1 Pads Result Diagram: 02/12/18 0525 02/12/18 0525 Objective Remarks Mild abdominal tenderness to palpation in the epigastrium, soft, nondistended Lying in bed, awake, alert, no acute distress A/P Assessment and Plan Acute pancreatitis - CT abdomen pelvis consistent with acute pancreatitis that is likely alcohol induced. trial clear liquid diet today. Transaminitis. 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 Neuro consult for suspected romy's syndrome Alcohol dependence CIWA protocol with Ativan prn. IV MVI/thiamine/folate. Can be transitioned to p.o. when appropriate Alcohol cessation counseling discussed Hypertriglyceridemia - not causative for pancreatitis and can be addressed when acute issues with pancreatitis/elevated LFTs resolve. Hypokalemia -Acute on likely chronic from suspected gastric malabsorption secondary to alcohol use, replace as ordered Thrombocytopenia Erythrocyte macrocytosis Was volume depleted and hemoconcentrated on admission. Has erythrocyte macrocytosis which is likely secondary to alcohol abuse. Thrombocytopenia may be secondary to alcohol use as well PTT is not prolonged as would be expected with DIC. fibrinogen not elevated. monitor platelets. Neg lower extremity u/s for any DVT. PROPH: SCD for DVT prophylaxis. Kendall Samano MD February 12, 2018 10:34
[2018-02-12 11:26] LABS: ALPHA-1-ANTITRYPSIN 165 mg/dL (100 - 190)
[2018-02-12] MEDS: traMADol HCL 50 MG TAB PO PRN ×3 (11:27→20:28)
[2018-02-12] MEDS: ONDANSETRON HCL 4 MG/2 ML VIAL IV PUSH PRN ×2 (11:27→17:20)
--- NOTE | 2018-02-12 13:12 | HHI.GIFU ---
Subjective Remarks Pt resting in bed. continued abd pain, nausea. (Kriss Hansen) Objective Vitals I&O Vital Signs Date Time Temp Pulse Resp B/P (MAP) Pulse Ox O2 Delivery O2 Flow Rate FiO2 02/12/18 12:00 97.7 104 20 147/94 (111) 98 02/12/18 08:00 98.3 96 20 137/84 (101) 94 02/12/18 08:00 98.3 96 20 137/84 (101) 94 02/12/18 04:00 90 02/12/18 04:00 98.2 96 17 114/80 (91) 94 02/12/18 00:00 98.6 100 21 126/75 (92) 97 02/11/18 20:00 98.5 105 18 120/82 (95) 98 02/11/18 20:00 106 02/11/18 18:00 98.2 102 20 139/62 (87) 98 02/11/18 16:43 105 43 134/73 (93) 02/11/18 16:00 106 02/11/18 16:00 106 33 97 02/11/18 15:46 102 21 126/90 (102) 93 02/11/18 14:00 121 02/11/18 14:00 121 44 02/11/18 13:27 119 02/11/18 13:27 119 41 129/85 (100) I/O 02/11/18 02/11/18 02/11/18 02/12/18 02/12/18 02/12/18 07:00 15:00 23:00 07:00 15:00 23:00 Intake Total 2670 ml 740 ml Balance 2670 ml 740 ml Intake Oral 50 ml 240 ml IV Total 2620 ml 500 ml # Voids 4 4 # Bowel Movements 0 1 # Sanitary Pads 2 Pads 1 Pads 1 Pads 1 Pads 1 Pads 0 Pads 1 Pads 1 Pads Laboratory Laboratory Tests Test 02/11/18 16:27 02/12/18 05:25 Iron Level 61 Total Iron Binding Capacity 193 Percent Iron Saturation 31.6 Ferritin 627 Tumor Marker Alpha Fetoprotein 3.2 White Blood Count 4.0 Red Blood Count 3.10 Hemoglobin 11.0 Hematocrit 31.4 Mean Corpuscular Volume 101.1 Mean Corpuscular Hemoglobin 35.5 Mean Corpuscular Hemoglobin Concent 35.1 Red Cell Distribution Width 12.3 Platelet Count 58 Mean Platelet Volume 9.0 Neutrophils (%) (Auto) 50.9 Lymphocytes (%) (Auto) 34.9 Monocytes (%) (Auto) 9.9 Eosinophils (%) (Auto) 3.0 Basophils (%) (Auto) 1.3 Neutrophils # (Auto) 2.0 Lymphocytes # (Auto) 1.4 Monocytes # (Auto) 0.4 Eosinophils # (Auto) 0.1 Basophils # (Auto) 0.1 CBC Comment AUTO DIFF Differential Comment AUTO DIFF CONFIRMED Platelet Estimate LOW Platelet Morphology Comment NORMAL Blood Urea Nitrogen LESS THAN 1 Creatinine 0.25 Random Glucose 99 Total Protein 5.5 Albumin 3.1 Calcium Level 8.0 Alkaline Phosphatase 86 Aspartate Amino Transf (AST/SGOT) 114 Alanine Aminotransferase (ALT/SGPT) 91 Total Bilirubin 1.2 Sodium Level 142 Potassium Level 2.2 Chloride Level 104 Carbon Dioxide Level 29.3 Anion Gap 9 Estimat Glomerular Filtration Rate 311 Lipase 3483 Date/Time Source Procedure Growth Status 02/09/18 21:25 Blood Peripheral Aerobic Blood Culture - Preliminary NO GROWTH IN 3 DAYS Resulted 02/09/18 21:25 Blood Peripheral Anaerobic Blood Culture - Preliminary NO GROWTH IN 3 DAYS Resulted 02/09/18 21:45 Urine Clean Catch Urine Culture - Final 10-50,000 CFU/ML MIXED GRAM POSITIVE ... Complete Imaging Last Impressions Neck CTA 02/11/18 0000 Signed Impressions: Service Date/Time: Sunday, February 11, 2018 15:22 - CONCLUSION: Negative exam. Cervical and arch vessels are widely patent throughout with no significant atherosclerotic disease. Shubham Lazo MD Head CTA 02/11/18 0000 Signed Impressions: Service Date/Time: Sunday, February 11, 2018 15:22 - CONCLUSION: 1. Unremarkable head CTA examination. No evidence for large vessel occlusion or flow-limiting lesion. Hans Obrien MD Brain MRI 02/11/18 0000 Signed Impressions: Service Date/Time: Sunday, February 11, 2018 14:56 - CONCLUSION: Normal examination. Hector Lomeli MD Lower Extremity Ultrasound 02/10/18 0000 Signed Impressions: Service Date/Time: Saturday, February 10, 2018 08:12 - CONCLUSION: No DVT. Hector Maloney MD Head CT 02/10/18 0000 Signed Impressions: Service Date/Time: Sunday, February 11, 2018 02:13 - CONCLUSION: Normal examination. Soham Terrell MD Chest X-Ray 02/09/18 0000 Signed Impressions: Service Date/Time: Saturday, February 10, 2018 01:03 - CONCLUSION: Normal examination. Soham Terrell MD Abdomen/Pelvis CT 02/09/18 0000 Signed Impressions: Service Date/Time: Friday, February 09, 2018 21:29 - CONCLUSION: 1. Enlargement of the pancreatic head with peripancreatic fluid suggesting acute pancreatitis. Correlation with amylase and lipase size is recommended. 2. Enlarged fatty liver. 3. Ventral abdominal wall hernia to the right of midline containing only fat. Nicola Morris MD Physical Exam HEENT: Normocephalic; atraumatic; CHEST: Even/unlabored CARDIAC: irr HR ABDOMEN: Soft, mildly distended, diffuse abdominal tenderness, bowel sounds active EXTREMITIES: No clubbing, cyanosis, or edema. SKIN: Normal; no rash; no jaundice. OPERATIONS LEADER:alert and oriented (Kriss Hansen CREDIT CARD CLERK) Assessment and Plan Plan ASSESSMENT - Acute pancreatitis secondary to ETOH Lipase [address] abdomen and pelvis W IV contrast (02/09) --> Enlargement of the pancreatic head with peripancreatic fluid suggesting acute pancreatitis. Correlation with amylase and lipase size is recommended. Enlarged fatty liver. Ventral abdominal wall hernia to the right of midline containing only fat. - Elevated LFTs AST-298 ALT-230 T bili-1.1 Alk phos-135 Iron-107 TIBC-210 %sat-51 Ferritin-917 Hepatitis panel negative. AFP-3.4 FELIPE, AMA, ASMA pending. A1A and Ceruloplasmin pending. - Alcohol acidosis- pH 7.18 on venous blood gas on admission- Bicarb gtt now DCd - Thrombocytopenia- platelets- 73 (02/11) Pt complaining of nausea, denies emesis. Continue abdominal pain. ' Hypocalcemia- calcium-7.8 Initial drop in H/H now stabilized. Hypokalemia noted- replacement per attending On Pepcid, IVF Pt being worked up for possible Van syndrome. 02/12/18 lipase decreased to 3500. liver w/u in progress. LFTs trending down. nausea controlled with antiemetics. continued abd discomfort. PLAN - await liver w/u - antiemetics PRN - monitor lipase - monitor LFTs - IVF - etoh cessation - Supportive care Pt has been seen and examined by myself and Dr. Hernández and this note is written on his behalf (Kriss Hansen) Physician Comments Seen and examined with DAVID, acute etoh pancreatitis appears to be improving. Liquid diet advance as tolerated. Liver harmon in progress. No ETOH recommended. GI fu upon dc. GI will sign off. Thank you (Crista Hernández MD) Kriss Hansen February 12, 2018 13:12 Crista Hernández MD February 12, 2018 14:35
[2018-02-12 14:25] LABS: SMOOTH MUSCLE TOTAL AUTOABS Negative (Negative)
[2018-02-12] MEDS: LORazepam 2 MG/ML VIAL IV PUSH PRN (20:28)
[2018-02-12] MEDS: MULTIVITAMIN INJ 10 ML, FOLIC ACID INJ 1 MG in SODIUM CHLORID 0.9% 500 ML INJ 500 ML IV SCH (20:33)
[2018-02-12] MEDS ORDERED: MORPHINE SULFATE 4 MG/ML INJ IV PUSH ONE (23:15)
[2018-02-13] VITALS (7 sets, daily range): BP systolic 121–143; BP diastolic 69–97; PULSE 78–98; RESP 16–20; TEMP 97.7–98.3; O2SAT 97–99
[2018-02-13] MEDS: traMADol HCL 50 MG TAB PO PRN ×5 (01:35→20:58)
[2018-02-13] MEDS: CHLORHEXIDINE GLUCONATE 2 % 1 PACK (2 CLOTHS) TOP SCH (04:00)
[2018-02-13 06:02] LABS: BLOOD UREA NITROGEN LESS THAN 1 MG/DL (7-18); CALCIUM 8.3 MG/DL (8.5-10.1); CHLORIDE 101 MEQ/L (98-107); CREATININE 0.23 MG/DL (0.50-1.00); GLOMERULAR FILTRATION RATE 342 ML/MIN (>89); GLUCOSE,RANDOM 98 MG/DL (74-106); SODIUM (NA) 139 MEQ/L (136-145)
[2018-02-13] MEDS: ONDANSETRON HCL 4 MG/2 ML VIAL IV PUSH PRN ×2 (07:51→14:03)
[2018-02-13] MEDS ORDERED: POTASSIUM CHLOR 20 MEQ PREMIX 100 ML IV ONE (08:00)
[2018-02-13] MEDS: D5-LR + KCL 20 MEQ INJ 1,000 ML IV SCH (08:00)
[2018-02-13] MEDS: FAMOTIDINE 20 MG TAB PO SCH ×2 (08:00→20:59)
[2018-02-13] MEDS: POTASSIUM CHLORIDE 10 MEQ CONTROLLED RELEASE TAB PO SCH (08:00)
[2018-02-13] MEDS: LACTULOSE SYRUP 20 GM/30 ML CUP PO SCH ×2 (08:01→20:59)
[2018-02-13] MEDS: NICOTINE 7 MG/24 HR PATCH T-DERMAL SCH (08:01)
[2018-02-13] MEDS: REMOVE OLD PATCH T-DERMAL SCH (08:01)
[2018-02-13] MEDS: SODIUM CHLORIDE 0.9% FLUSH 10 ML FLUSH IV FLUSH SCH ×2 (08:03→20:59)
[2018-02-13] MEDS ORDERED: POTASSIUM CHLORIDE 25 MEQ EFFERVESCENT TAB PO ONE (11:00)
--- NOTE | 2018-02-13 11:19 | HHI.PR ---
Subjective Remarks Patient reports having mild nausea this morning. But she did tolerate very little p.o. intake with the clear liquids, was scared to try more. Would like something stronger for pain. Patient says that she would like some pain control. Objective Vital Signs Date Time Temp Pulse Resp B/P (MAP) Pulse Ox O2 Delivery O2 Flow Rate FiO2 02/13/18 08:00 98.1 98 16 132/83 (99) 98 02/13/18 08:00 96 02/13/18 04:00 97.8 98 20 130/88 (102) 98 02/13/18 04:00 95 02/13/18 02:35 16 02/13/18 00:00 98.2 94 20 121/69 (86) 97 02/13/18 00:00 92 02/12/18 23:30 16 02/12/18 20:00 99 02/12/18 20:00 98.2 99 18 135/75 (95) 99 02/12/18 16:00 98.1 99 20 130/81 (97) 98 02/12/18 15:38 105 02/12/18 12:00 97.7 104 20 147/94 (111) 98 02/12/18 11:40 106 I/O 02/12/18 02/12/18 02/12/18 02/13/18 02/13/18 02/13/18 07:00 15:00 23:00 07:00 15:00 23:00 Intake Total 740 ml 540 ml 2400 ml Balance 740 ml 540 ml 2400 ml Intake Oral 240 ml 540 ml 2400 ml IV Total 500 ml # Voids 4 4 4 # Bowel Movements 1 1 0 Result Diagram: 02/12/18 0525 02/13/18 0434 Objective Remarks Mild abdominal tenderness to palpation in the epigastrium, soft, nondistended Lying in bed, awake, alert, no acute distress No change from yesterday overall A/P Assessment and Plan Acute pancreatitis - CT abdomen pelvis consistent with acute pancreatitis that is likely alcohol induced. IV fluids. Reinforce clear liquid trial, may progress to soft diet tonight if tolerates well. Transaminitis. -Improving with IV fluids, GI following, likely alcohol induced , peripheral blood work still pending. viral Hepatitis panel is negative. 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 neuro with no further recs, imaging overall unremarkable Alcohol dependence CIWA protocol with Ativan prn. IV MVI/thiamine/folate. Can be transitioned to p.o. when appropriate Alcohol cessation counseling discussed Hypertriglyceridemia - not causative for pancreatitis and can be addressed when acute issues with pancreatitis/elevated LFTs resolve. Hypokalemia -Acute on likely chronic from suspected gastric malabsorption secondary to alcohol use, replace as ordered; increasing potassium supplementation, magnesium low, replacing IV. Ordering urine random potassium, may consider starting spironolactone Thrombocytopenia Erythrocyte macrocytosis likely 2/2 ETOH use monitor PLTs. lower extremity u/s negative for any consumption coagulopathy PROPH: SCD for DVT prophylaxis. Kendall Samano MD February 13, 2018 11:18
[2018-02-13] MEDS: MAGNESIUM SULFATE 1 GM PREMIX 100 ML IV SCH ×2 (12:00→13:26)
[2018-02-13 19:52] LABS: CERULOPLASMIN 20 mg/dL (18-53)
[2018-02-13] MEDS: POTASSIUM CHLORIDE 25 MEQ EFFERVESCENT TAB PO SCH (20:58)
[2018-02-13] MEDS: MULTIVITAMIN INJ 10 ML, FOLIC ACID INJ 1 MG in SODIUM CHLORID 0.9% 500 ML INJ 500 ML IV SCH (20:59)
[2018-02-13 22:37] LABS: ALPHA-1-ANTITRYPSIN 177 mg/dL (100 - 190)
[2018-02-13] MEDS: LORazepam 2 MG/ML VIAL IV PUSH PRN (22:43)
[2018-02-13 23:54] LABS: MITOCHONDRIAL ABS LESS THAN 20.0 U (<=20.0)
[2018-02-14] VITALS: PULSE 92
[2018-02-14 00:03] VITALS: BP 130/80; PULSE 92; RESP 16; TEMP 98.2; O2SAT 98
[2018-02-14] MEDS: traMADol HCL 50 MG TAB PO PRN ×2 (02:59→09:01)
[2018-02-14] MEDS: CHLORHEXIDINE GLUCONATE 2 % 1 PACK (2 CLOTHS) TOP SCH (03:00)
[2018-02-14 04:00] VITALS: BP 134/66; PULSE 89; PULSE 92; RESP 18; TEMP 98.5; O2SAT 98
[2018-02-14 07:07] LABS: HEMATOCRIT 32.9 % (35.0-46.0); HEMOGLOBIN 11.5 GM/DL (11.6-15.3); MEAN CELL VOLUME 101.9 FL (80.0-100.0); MEAN CORPUSCULAR HEMOGLOBIN 35.7 PG (27.0-34.0); MEAN CORPUSCULAR HGB CONC 35.1 % (32.0-36.0); MEAN PLATELET VOLUME 8.5 FL (7.0-11.0); PLATELET COUNT 97 TH/MM3 (150-450); RED BLOOD COUNT 3.23 MIL/MM3 (4.00-5.30); RED CELL DISTRIBUTION WIDTH 12.9 % (11.6-17.2); WHITE BLOOD COUNT 4.3 TH/MM3 (4.0-11.0)
[2018-02-14 07:35] LABS: BLOOD UREA NITROGEN 1 MG/DL (7-18); CALCIUM 8.3 MG/DL (8.5-10.1); CHLORIDE 105 MEQ/L (98-107); CREATININE 0.28 MG/DL (0.50-1.00); GLUCOSE,RANDOM 80 MG/DL (74-106); SODIUM (NA) 142 MEQ/L (136-145)
[2018-02-14 08:00] VITALS: PULSE 84
[2018-02-14 08:10] VITALS: BP 126/77; PULSE 99; RESP 16; TEMP 97.8; O2SAT 97
[2018-02-14] MEDS: POTASSIUM CHLORIDE 10 MEQ CONTROLLED RELEASE TAB PO SCH (08:57)
[2018-02-14] MEDS: LACTULOSE SYRUP 20 GM/30 ML CUP PO SCH (08:57)
[2018-02-14] MEDS: POTASSIUM CHLORIDE 25 MEQ EFFERVESCENT TAB PO SCH (08:58)
[2018-02-14] MEDS: SODIUM CHLORIDE 0.9% FLUSH 10 ML FLUSH IV FLUSH SCH (08:58)
[2018-02-14] MEDS: FAMOTIDINE 20 MG TAB PO SCH (08:58)
[2018-02-14] MEDS: REMOVE OLD PATCH T-DERMAL SCH (08:59)
[2018-02-14] MEDS: NICOTINE 7 MG/24 HR PATCH T-DERMAL SCH (08:59)
--- NOTE | 2018-02-14 09:17 | HHI.DCPOC ---
Discharge Care Plan Diagnosis: (1) EtOH dependence (2) Transaminitis (3) Thrombocytopenia (4) Pancreatitis, alcoholic, acute (5) Alcoholic hepatitis (6) Hypokalemia Additional Problems Avoid tylenol use until cleared by your PCP. Goals to Promote Your Health * To prevent worsening of your condition and complications * To maintain your health at the optimal level Directions to Meet Your Goals Take your medications as prescribed Follow your dietary instruction Follow activity as directed Keep your appointments as scheduled Take your immunizations and boosters as scheduled If your symptoms worsen call your PCP, if no PCP go to Urgent Care Center or Emergency Room Smoking is Dangerous to Your Health. Avoid second hand smoke Call the 24-hour hour crisis hotline for domestic abuse at Kendall Samano MD February 14, 2018 09:17
[2018-02-14] MEDS ORDERED: KLOR20TA3 PO (09:19)
[2018-02-14] MEDS ORDERED: MAGN400T2 PO (09:21)
[2018-02-14] MEDS ORDERED: TRAM50 PO (10:06)
[2018-02-14] MEDS ORDERED: ONDA4TAB7 SL (10:07)
[2018-02-14] MEDS ORDERED: POLY17S PO (10:07)
--- NOTE | 2018-02-14 10:11 | HHI.DS ---
Discharge Summary Admission Date February 09, 2018 at 21:07 Discharge Date: February 14, 2018 Admitting Diagnosis alcoholic ketosis,acidemia,dehydration,pancreatitis (1) Pancreatitis, alcoholic, acute ICD Code: K85.20 - Alcohol induced acute pancreatitis without necrosis or infection Diagnosis: Principal Status: Acute (2) Alcoholic ketosis ICD Code: E87.2 - Acidosis Diagnosis: Principal Status: Acute (3) Dehydration, severe ICD Code: E86.0 - Dehydration Diagnosis: Secondary Status: Acute (4) Cocaine abuse ICD Code: F14.10 - Cocaine abuse, uncomplicated Diagnosis: Secondary Status: Acute (5) Tobacco abuse ICD Code: Z72.0 - Tobacco use Diagnosis: Secondary Status: Chronic (6) EtOH dependence ICD Code: F10.20 - Alcohol dependence, uncomplicated Diagnosis: Secondary Status: Chronic Procedures none Brief History - From Admission 38-year-old female with past medical history of chronic alcohol dependence who presented to [facility] with a 3 day history of nausea vomiting and abdominal pain. She denies hematemesis or melena. Workup revealed acute pancreatitis. She had sinus tachycardia in the 110s but was normotensive. Her lipase was 3500, transaminases were elevated in the [address] abdomen and pelvis is consistent with acute pancreatitis. There is no evidence of biliary obstruction. She also has acute alcoholic ketoacidosis with bicarbonate 5.8, anion gap 28, glucose 71, beta hydroxy hydroxybutyrate of 11.6. PH is 7.18/PaCO2 of 16. She is hemoconcentrated with hemoglobin of 16.7. Creatinine is normal. She admits to using cocaine and alcohol. She denies toxic alcohol ingestion. Her EtOH level was 287. She is transferred to [facility] for outreach rep admission. At [facility] she received 4 L of normal saline bolus, bicarb 100 mEq, Phenergan 25 mg IM, Ativan 1 mg IV. She denies prior history of pancreatitis though she is not completely reliable historian at this point as she appears to be experiencing early alcohol withdrawal symptom versus stimulant toxicity. Mental status was reportedly normal at [facility]. CBC/BMP: 02/14/18 0630 02/14/18 0630 Significant Findings Laboratory Tests Test 02/11/18 16:27 02/12/18 05:25 02/13/18 04:34 02/13/18 07:47 Total Iron Binding Capacity 193 MCG/DL (250-450) Ferritin 627 NG/ML (8-252) Red Blood Count 3.10 MIL/MM3 (4.00-5.30) Hemoglobin 11.0 GM/DL (11.6-15.3) Hematocrit 31.4 % (35.0-46.0) Mean Corpuscular Volume 101.1 FL (80.0-100.0) Mean Corpuscular Hemoglobin 35.5 PG (27.0-34.0) Platelet Count 58 TH/MM3 (150-450) Monocytes (%) (Auto) 9.9 % (0.0-8.0) Platelet Estimate LOW (NORMAL) Blood Urea Nitrogen LESS THAN 1 MG/DL (7-18) LESS THAN 1 MG/DL (7-18) Creatinine 0.25 MG/DL (0.50-1.00) 0.23 MG/DL (0.50-1.00) Total Protein 5.5 GM/DL (6.4-8.2) Albumin 3.1 GM/DL (3.4-5.0) Calcium Level 8.0 MG/DL (8.5-10.1) 8.3 MG/DL (8.5-10.1) Aspartate Amino Transf (AST/SGOT) 114 U/L (15-37) Alanine Aminotransferase (ALT/SGPT) 91 U/L (10-53) Total Bilirubin 1.2 MG/DL (0.2-1.0) Potassium Level 2.2 MEQ/L (3.5-5.1) 2.4 MEQ/L (3.5-5.1) Lipase 3483 U/L (73-393) 1854 U/L (73-393) Magnesium Level 1.4 MG/DL (1.5-2.5) Test 02/13/18 16:42 02/13/18 20:13 02/14/18 06:30 Potassium Level 2.9 MEQ/L (3.5-5.1) 3.1 MEQ/L (3.5-5.1) Red Blood Count 3.23 MIL/MM3 (4.00-5.30) Hemoglobin 11.5 GM/DL (11.6-15.3) Hematocrit 32.9 % (35.0-46.0) Mean Corpuscular Volume 101.9 FL (80.0-100.0) Mean Corpuscular Hemoglobin 35.7 PG (27.0-34.0) Platelet Count 97 TH/MM3 (150-450) Blood Urea Nitrogen 1 MG/DL (7-18) Creatinine 0.28 MG/DL (0.50-1.00) Calcium Level 8.3 MG/DL (8.5-10.1) Lipase 2502 U/L (73-393) PE at Discharge Abdomen soft, minimally tender to palpation, nondistended Patient in no acute distress Hospital Course Patient was admitted, started on IV fluids. GI was consulted given the patient' s elevated liver enzymes and lipase, recommend supportive care for pancreatitis. Patient's workup otherwise was unremarkable and overall was concluded to have alcohol induced pancreatitis. Patient's hospitalization was prolonged longer than usual due to hyperkalemia likely secondary to poor absorption likely secondary to alcohol use. Eventually patient's electrolytes stabilized and her p.o. intake was stable. Neurology had been consulted originally for questionable Van syndrome picture but overall clinically this was not impressive and SPORTS THERAPIST imaging ordered by neurology was negative. Patient was counseled extensively on avoiding further alcohol and tobacco usage to minimize any further bouts of pancreatitis. Was instructed to follow-up with PCP to monitor her potassium levels. Patient has met maximal benefit from hospitalization and is clinically stable for discharge. Pt Condition on Discharge: Stable Discharge Disposition: Discharge Home Discharge Time: <= 30 minutes Discharge Instructions DIET: Follow Instructions for: Low Fat Diet Additional Diet Instructions: advance diet from soft to more formed as tolerated Activities you can perform: Regular-No Restrictions Kendall Samano MD February 14, 2018 10:11
[2018-02-14 17:51] LABS: CERULOPLASMIN 18 mg/dL (18-53)
== END 2018-02-14 11:46 | disposition home or self-care (01) | DRG 438 ==
LOC: PHED 19:29 → PHEDA 21:07 → HIME 02-10 00:25 → N04A 02-11 17:47
PROVIDERS: ADMIT Hospitalist; ATTEND Hospitalist
DX: K85.20 Alcohol induced acute pancreatitis without necrosis or infection (principal); G93.40 Encephalopathy, unspecified; E87.2 Acidosis; D69.59 Other secondary thrombocytopenia; E83.51 Hypocalcemia; F10.239 Alcohol dependence with withdrawal, unspecified; K90.89 Other intestinal malabsorption; K76.0 Fatty (change of) liver, not elsewhere classified; E86.0 Dehydration; I10 Essential (primary) hypertension; H57.02 Anisocoria; E78.1 Pure hyperglyceridemia; I49.1 Atrial premature depolarization; D75.89 Other specified diseases of blood and blood-forming organs; K43.9 Ventral hernia without obstruction or gangrene; E87.6 Hypokalemia; F14.10 Cocaine abuse, uncomplicated; F17.210 Nicotine dependence, cigarettes, uncomplicated; F32.9 Major depressive disorder, single episode, unspecified; F43.10 Post-traumatic stress disorder, unspecified; Y90.8 Blood alcohol level of 240 mg/100 ml or more; Z81.1 Family history of alcohol abuse and dependence; Z81.3 Family history of other psychoactive substance abuse and dependence
CPT/HCPCS: 36600; 70450; 70496; 70498; 70551; 71045; 74177; 80048; 80053; 80074; 80307; 81001; 82010; 82103; 82105; 82140; 82390; 82550; 82728; 82805; 82948; 83520; 83540; 83550; 83605; 83690; 83735; 83930; 84100; 84132; 84133; 84155; 84478; 84484; 84702; 85007; 85025; 85027; 85384; 85610; 85730; 86038; 86255; 87040; 87086; 87641; 93005; 93970; 94150; 96361; 96374; 96375; 99292; G0481; J0610; J2060; J2270; J2405; J3411; J3475; J3480; J7030; J7040; J7042; J7050; J7070; Q9967

== ENCOUNTER 2018-02-16 00:27 | Emergency (ER) | payer MEDICAID ==
[~2018-02-16] VITALS: Ht 157.5 cm; Wt 72.0 kg
[~2018-02-16 00:27] MED LIST changes: +KLOR20TA3 PO; -MACR100C2 PO; +MAGN400T2 PO; +ONDA4TAB7 SL; +POLY17S PO; +TRAM50 PO
[2018-02-16 00:39] VITALS: BP 132/63; PULSE 97; RESP 18
[2018-02-16 00:45] VITALS: BP 132/63; PULSE 98; RESP 18; TEMP 99; O2SAT 98
[2018-02-16] MEDS ORDERED: DIPH25CA PO (00:50)
--- NOTE | 2018-02-16 00:57 | PD ---
HPI Chief Complaint: Seizure Time Seen by Provider: 00:53 Travel History International Travel<30 days: No Contact w/Intl Traveler<30days: No Traveled to known affect area: No History of Present Illness HPI 38-year-old female patient with history of alcohol abuse, was admitted for pancreatitis last week, and has stopped drinking since then on her own, had a seizure tonight. Patient has had no history of seizures in the past. She states that she was initially confused but now is feeling better. She denies any injuries. Modifying Factors: None Associated Signs & Symptoms: New onset seizure Risk Factors: History of alcohol abuse PFSH Past Medical History Anxiety: Yes Depression: Yes Diminished Hearing: No Gastrointestinal Disorders: Yes ("UMBILICAL HERNIA") Headaches: Yes Psychiatric: Yes (PTSD) Integumentary: Yes (PSORIASIS) ?: Not Menopausal: No : 4 Para: 3 Miscarriage: 1 Past Surgical History Other Surgery: Yes (BREAST AUGMENTATION/TUMMY TUCK) Social History Alcohol Use: Yes (STATED 02/09/18 "I DRINK 3 OR 4 MIXED DRINKS PER NIGHT") Tobacco Use: Yes (1 PPD) Substance Use: Yes (STATED 02/09/18 "VERY RARELY COCAINE") Allergies-Medications (Allergen,Severity, Reaction): Coded Allergies: No Known Allergies (Verified Allergy, Unknown, 02/09/18) Reported Meds & Prescriptions Reported Meds & Active Scripts Active Ondansetron Odt 4 Mg Tab 4 Mg SL Q8HR PRN Ultram (Tramadol HCl) 50 Mg Tab 100 Mg PO Q8HR PRN Magnesium Oxide 400 Mg Tab 400 Mg PO DAILY Klor-Con M20 (Potassium Chloride Microencaps) 20 Meq Tab 40 Meq PO Q12HR Zantac (Ranitidine HCl) 150 Mg Tab 150 Mg PO BID Reported Diphenhydramine (Diphenhydramine HCl) 25 Mg Cap 50 Mg PO HS PRN Zoloft (Sertraline HCl) 100 Mg Tab 100 Mg PO HS Review of Systems Except as stated in HPI: all other systems reviewed are Neg Physical Exam Narrative GENERAL: Well-developed young female patient currently in mild distress. Awake and oriented 3. SKIN: Focused skin assessment warm/dry. HEAD: Atraumatic. Normocephalic. EYES: Pupils is noted to be round, slightly larger on the left compared to the right, reactive to light bilaterally. No scleral icterus. No injection or drainage. ENT: No nasal bleeding or discharge. Mucous membranes pink and moist. NECK: Trachea midline. No JVD. Supple. CARDIOVASCULAR: Regular rate and rhythm. No murmur appreciated. RESPIRATORY: No accessory muscle use. Clear to auscultation. Breath sounds equal bilaterally. GASTROINTESTINAL: Abdomen soft, non-tender, nondistended. Hepatic and splenic margins not palpable. MUSCULOSKELETAL: No obvious deformities. No clubbing. No cyanosis. No edema. NEUROLOGICAL: Awake and alert. No obvious cranial nerve deficits. Motor grossly within normal limits. Normal speech. PSYCHIATRIC: Appropriate mood and affect; insight and judgment normal. Data Data Last Documented VS Vital Signs Date Time Temp Pulse Resp B/P (MAP) Pulse Ox O2 Delivery O2 Flow Rate FiO2 02/16/18 00:45 99.0 98 18 132/63 (86) 98 Room Air Orders Orders Complete Blood Count With Diff (02/16/18 00:53) Alcohol (Ethanol) (02/16/18 00:53) Drug Screen, Random Urine (02/16/18 00:53) Electrocardiogram (02/16/18 ) Ct Brain W/O Iv Contrast(Rout) (02/16/18 ) Blood Glucose (02/16/18 00:53) Ecg Monitoring (02/16/18 00:53) Iv Access Insert/Monitor (02/16/18 00:53) Oximetry (02/16/18 00:53) Comprehensive Metabolic Panel (02/16/18 00:53) Sodium Chloride 0.9% Flush (Ns Flush) (02/16/18 01:00) Lorazepam Inj (Ativan Inj) (02/16/18 01:00) Ed Urine Pregnancytest Poc (02/16/18 00:53) Potassium Chloride Eff (K-Lyte Cl Eff) (02/16/18 02:15) Ed Discharge Order (02/16/18 03:34) Labs Laboratory Tests Test 02/16/18 01:10 02/16/18 01:22 White Blood Count 6.3 TH/MM3 Red Blood Count 3.87 MIL/MM3 Hemoglobin 13.7 GM/DL Hematocrit 39.3 % Mean Corpuscular Volume 101.6 FL Mean Corpuscular Hemoglobin 35.5 PG Mean Corpuscular Hemoglobin Concent 35.0 % Red Cell Distribution Width 12.8 % Platelet Count 210 TH/MM3 Mean Platelet Volume 8.7 FL Neutrophils (%) (Auto) 58.4 % Lymphocytes (%) (Auto) 20.4 % Monocytes (%) (Auto) 16.8 % Eosinophils (%) (Auto) 3.2 % Basophils (%) (Auto) 1.2 % Neutrophils # (Auto) 3.7 TH/MM3 Lymphocytes # (Auto) 1.3 TH/MM3 Monocytes # (Auto) 1.1 TH/MM3 Eosinophils # (Auto) 0.2 TH/MM3 Basophils # (Auto) 0.1 TH/MM3 CBC Comment DIFF FINAL Differential Comment Blood Urea Nitrogen 5 MG/DL Creatinine 0.55 MG/DL Random Glucose 102 MG/DL Total Protein 7.3 GM/DL Albumin 3.8 GM/DL Calcium Level 9.6 MG/DL Alkaline Phosphatase 115 U/L Aspartate Amino Transf (AST/SGOT) 38 U/L Alanine Aminotransferase (ALT/SGPT) 63 U/L Total Bilirubin 0.4 MG/DL Sodium Level 139 MEQ/L Potassium Level 2.8 MEQ/L Chloride Level 99 MEQ/L Carbon Dioxide Level 30.4 MEQ/L Anion Gap 10 MEQ/L Estimat Glomerular Filtration Rate 125 ML/MIN Ethyl Alcohol Level LESS THAN 3 MG/DL Urine Opiates Screen NEG Urine Barbiturates Screen NEG Urine Amphetamines Screen NEG Urine Benzodiazepines Screen NEG Urine Cocaine Screen NEG Urine Cannabinoids Screen NEG MDM Medical Decision Making Medical Screen Exam Complete: Yes Emergency Medical Condition: Yes Medical Record Reviewed: Yes Interpretation(s) Laboratory Tests Test 02/16/18 01:10 02/16/18 01:22 Red Blood Count 3.87 MIL/MM3 (4.00-5.30) Mean Corpuscular Volume 101.6 FL (80.0-100.0) Mean Corpuscular Hemoglobin 35.5 PG (27.0-34.0) Monocytes (%) (Auto) 16.8 % (0.0-8.0) Monocytes # (Auto) 1.1 TH/MM3 (0-0.9) Blood Urea Nitrogen 5 MG/DL (7-18) Aspartate Amino Transf (AST/SGOT) 38 U/L (15-37) Alanine Aminotransferase (ALT/SGPT) 63 U/L (10-53) Potassium Level 2.8 MEQ/L (3.5-5.1) Differential Diagnosis New onset seizure: Alcohol withdrawal seizures versus electrolyte abnormalities versus dysrhythmias versus acute intracranial process Narrative Course Patient is not . Her vital signs are stable in the ER. Her lab work does show that she has a potassium of 2.8. She had a history of a low potassium and is supposed to be on potassium pills but she has not been taking them. She was given a dose of Ativan in the ER for some alcohol withdrawal. It is uncertain whether the seizures secondary to alcohol withdrawal or not. She has not had any alcohol in over a week without seizures. EKG did not show any signs of significant dysrhythmias. At this point, I have offered to admit her for alcohol withdrawal and new onset seizures for further evaluation. However, the patient is declining at this time stating that is Mother's Day and she does not want to stay, she has 3 children. She is willing to follow-up closely with her primary care doctor for further evaluation. At this point, my plan would be to release her with very close follow-up to primary care physician. She should take her potassium pills. She will be given Librium to help with alcohol withdrawals. No driving or operating heavy machinery. Return for any worsening in symptoms or new seizures. The plan has been discussed with her and she states understanding. CT did not show any signs of acute intracranial processes. Diagnosis Primary Impression: New onset seizure Additional Impressions: Alcohol withdrawal Hypokalemia Med/Other Pt SpecificInfo: Prescription(s) given Scripts Chlordiazepoxide HCl (Chlordiazepoxide HCl) 25 Mg Capsule 25 MG PO TID Y for WITHDRAWAL, #15 Prov: Marlon Khan MD 02/16/18 Disposition: 01 DISCHARGE HOME Condition: Stable Marlon Khan MD February 16, 2018 00:57
[2018-02-16] MEDS ORDERED: SODIUM CHLORIDE 0.9% FLUSH 10 ML FLUSH IVF PRN (01:00)
[2018-02-16] MEDS ORDERED: LORazepam 2 MG/ML VIAL IVS ONE (01:00)
[2018-02-16 01:34] LABS: AUTOMATED NEUTROPHIL # 3.7 TH/MM3 (1.8-7.7); BASOPHIL # 0.1 TH/MM3 (0-0.2); BASOPHIL % 1.2 % (0.0-2.0); EOSINOPHIL # 0.2 TH/MM3 (0-0.4); EOSINOPHIL % 3.2 % (0.0-4.0); HEMATOCRIT 39.3 % (35.0-46.0); HEMOGLOBIN 13.7 GM/DL (11.6-15.3); LYMPH % 20.4 % (9.0-44.0); LYMPHOCYTE # 1.3 TH/MM3 (1.0-4.8); MEAN CELL VOLUME 101.6 FL (80.0-100.0); MEAN CORPUSCULAR HEMOGLOBIN 35.5 PG (27.0-34.0); MEAN PLATELET VOLUME 8.7 FL (7.0-11.0); MONO % 16.8 % (0.0-8.0); MONOCYTE # 1.1 TH/MM3 (0-0.9); NEUT % 58.4 % (16.0-70.0); PLATELET COUNT 210 TH/MM3 (150-450); RED BLOOD COUNT 3.87 MIL/MM3 (4.00-5.30); RED CELL DISTRIBUTION WIDTH 12.8 % (11.6-17.2); WHITE BLOOD COUNT 6.3 TH/MM3 (4.0-11.0)
[2018-02-16 01:58] LABS: ALBUMIN 3.8 GM/DL (3.4-5.0); ALKALINE PHOSPHATASE 115 U/L (45-117); ALT (GPT) 63 U/L (10-53); AST (GOT) 38 U/L (15-37); BICARBONATE 30.4 MEQ/L (21.0-32.0); BLOOD UREA NITROGEN 5 MG/DL (7-18); CALCIUM 9.6 MG/DL (8.5-10.1); CHLORIDE 99 MEQ/L (98-107); CREATININE 0.55 MG/DL (0.50-1.00); GLOMERULAR FILTRATION RATE 125 ML/MIN (>89); GLUCOSE,RANDOM 102 MG/DL (74-106); SODIUM (NA) 139 MEQ/L (136-145); TOTAL BILIRUBIN ADULT 0.4 MG/DL (0.2-1.0); TOTAL PROTEIN 7.3 GM/DL (6.4-8.2)
[2018-02-16] MEDS ORDERED: POTASSIUM CHLORIDE 25 MEQ EFFERVESCENT TAB PO ONE (02:15)
--- NOTE | 2018-02-16 03:23 | RADRPT ---
EXAM DATE/TIME: 02/16/2018 03:09 [facility] COMPARISON: CT BRAIN W/O CONTRAST, February 11, 2018, 2:13. INDICATIONS : Syncopal episode. RADIATION DOSE: 56.35 CTDIvol (mGy) MEDICAL HISTORY : None SURGICAL HISTORY : None. ENCOUNTER: Initial ACUITY: 1 day PAIN SCALE: 0/10 LOCATION: cranial TECHNIQUE: Multiple contiguous axial images were obtained of the head. Using automated exposure control and adj ustment of the mA and/or kV according to patient size, radiation dose was kept as low as reasonably a chievable to obtain optimal diagnostic quality images. DICOM format image data is available electro nically for review and comparison. FINDINGS: CEREBRUM: The ventricles are normal for age. No evidence of midline shift, mass lesion, hemorrhage or acute in farction. No extra-axial fluid collections are seen. POSTERIOR FOSSA: The cerebellum and brainstem are intact. The 4th ventricle is midline. The cerebellopontine angle i s unremarkable. EXTRACRANIAL: The visualized portion of the orbits is intact. SKULL: The calvaria is intact. No evidence of skull fracture. CONCLUSION: Negative noncontrast CT Jordan Miller MD on February 16, 2018 at 3:19 Board Certified Radiologist. This report was verified electronically.
[2018-02-16] MEDS ORDERED: CHLO25CA9 PO (03:38)
--- NOTE | 2018-02-16 17:10 | EKG ---
Date Performed: 02/16/2018 Time Performed: 00:56:46 PTAGE: 38 years EKG: Sinus rhythm WITH OCCASIONAL ECTOPIC PREMATURE COMPLEXES POSSIBLE LEFT ATRIAL ENLARGEMENT BORDERLINE ECG PREVIOUS TRACING : 02/10/2018 04.57 Compared to previous tracing, rate slower DOCTOR: Annia Hartman Interpretating Date/Time 02/16/2018 17:10:10
== END 2018-02-16 03:50 | disposition home or self-care (01) ==
LOC: NEPC 00:27
DX: R56.9 Unspecified convulsions (principal); F10.239 Alcohol dependence with withdrawal, unspecified; E87.6 Hypokalemia; R94.31 Abnormal electrocardiogram [ECG] [EKG]; Y90.0 Blood alcohol level of less than 20 mg/100 ml; F32.9 Major depressive disorder, single episode, unspecified; F43.10 Post-traumatic stress disorder, unspecified; F17.210 Nicotine dependence, cigarettes, uncomplicated; Z79.899 Other long term (current) drug therapy
CPT/HCPCS: 70450; 80053; 80307; 84703; 85025; 93005; 96374; 99285; J2060